=== PATIENT | female | born 1960 | race Caucasian/White ===

== ENCOUNTER 2018-02-01 21:31 | Observation (INO) | payer BC ==
--- NOTE | 2018-02-01 21:35 | PDOC ---
Rapid Medical Evaluation Time Seen by Provider: 02/01/18 21:32 Medical Evaluation: Allergies Allergy/AdvReac Type Severity Reaction Status Date / Time No Known Drug Allergies Allergy Verified 09/02/15 07:13 02/01/18 21:32 I have performed a brief in-person evaluation of this patient. The patient presents with a chief complaint of infected wound to left upper thigh. Patient reports s/p removal of cyst one week ago, noted to be red and painful at follow up at re examiner office today. Given po antibiotics and referred for iv antibiotics Pertinent physical exam findings: NAD even and unlabored unable to sit I have ordered the following: iv access The patient will proceed to the Ed for further evaluation.
--- NOTE | 2018-02-01 23:01 | PDOC ---
Attending Attestation - Resident Resident Name: Issa Portillo - ED Attending Attestation I have performed the following: I have examined & evaluated the patient, The case was reviewed & discussed with the resident, I agree w/resident's findings & plan, Exceptions are as noted - HPI HPI: 02/01/18 23:47 57yo female with recent cyst removed by her geography teacher to the posterior aspect of hte L leg. Pt with increasing pain to posterior aspect of leg. Pt without fevers. Had post op follow up with derm - removed stitch today and noticed redness to the leg. - Physicial Exam PE: 02/01/18 23:49 Gen: aaox3, uncomfortable heart: +s1s2 tachy lungs: cta b/l abd: soft, nt/nd +bs ext: L posterior thigh with [id number] indurated erythematous aspect around the open incision with purulent drainage, no lymphangitic spread, bedside ultrasound shows 2cm deep absces which is 2cm x 0.5cm in length - Medical Decision Making 02/01/18 23:01 I, Dr. Zamzam Eli, DO, attest that this document has been prepared under my direction and personally reviewed by me in its entirety. I further attest, that it accurately reflects all work, treatment, procedures and medical decision -making performed by me. 02/01/18 23:50 a/p: 57yo female with cyst removal from back of leg now with post op infectoin -sent by derm for iv abx -[id number] indurated region, opening with purulent drainage -will send labs, cultures of the wound, will start abx -will place in obs for further eval 02/02/18 00:00 resident discussed the case with Carlotta from [facility] 02/02/18 01:20 labs reviewed [facility] updated on labs iv abx running pt will be placed in obs Heart Score/ECG Review - ECG Intrepretation Comment:: 02/02/18 00:34 sinus at 90, nl axis, qtc 491, no acute st/t wave findings
[2018-02-01] MEDS ORDERED: VANCOMYCIN 1,250 MG in DEXTROSE 5%-WATER - 250 ML IVPB ONE (23:47)
--- NOTE | 2018-02-01 23:50 | PDOC ---
History of Present Illness - General Chief Complaint: Abscess Boil Stated Complaint: INFECTION Time Seen by Provider: 02/01/18 21:32 History Source: Patient Exam Limitations: No Limitations - History of Present Illness Initial Comments: 57 y/o female presenting to [facility] ER via private auto from dermatologists office complaining of worsening pain and purulent discharge from post-op wound on right posterior aspect of thigh. Pt is s/p outpatient cystectomy at Dr. Berry office last . She followed up today in the clinic. A stitch was removed and the wound was found to be likely infected. Dr. Garcia prescribed Doxycycline 100mg BID and encouraged the pt to seek emergent evaluation. Pt took one doxycycline pill tonight around 20:00. Denies fevers, chills, or diaphoresis. Panel Edge Sealer: Dr. Garcia PCP: Dr. Perez Medical Hx: - HTN Surgical Hx: - Cholecystectomy - x3 - Pins placed in R ankle Past History - Past Medical History Allergies/Adverse Reactions: Allergies Allergy/AdvReac Type Severity Reaction Status Date / Time No Known Drug Allergies Allergy Verified 02/01/18 21:35 Home Medications: Ambulatory Orders Bupropion HCl [Wellbutrin Xl] 300 mg PO DAILY 08/31/15 Cholecalciferol (Vitamin D3) [Vitamin D3] 5,000 unit PO DAILY 08/31/15 Hydrochlorothiazide [Hctz -] 25 mg PO DAILY 08/31/15 Levothyroxine [Synthroid -] 50 mcg PO DAILY 08/31/15 Naproxen [Naprosyn -] 500 mg PO BID #60 tablet 09/02/15 Oxycodone HCl/Acetaminophen [Percocet 5-325 mg Tablet] 1 tab PO Q6H PRN #40 tablet MDD 4 09/02/15 COPD: No HTN: Yes Thyroid Disease: Yes - Surgical History Cholecystectomy: Yes - Suicide/Smoking/Psychosocial Hx Smoking History: Never smoked Hx Alcohol Use: No Drug/Substance Use Hx: No Substance Use Type: None Hx Substance Use Treatment: No Review of Systems - Review of Systems Constitutional: No: Chills, Diaphoresis, Fever Respiratory: No: Shortness of Breath Cardiac (ROS): No: Chest Pain ABD/GI: No: Constipated, Diarrhea, Nausea, Vomiting, Abdominal cramping Integumentary: Yes: See HPI, Erythema, Lesions, Rash Hematologic/Lymphatic: No: Easy Bleeding, Easy Bruising *Physical Exam - Vital Signs Last Vital Signs Temp Pulse Resp BP Pulse Ox 98.4 F 104 H 18 144/99 98 02/01/18 21:32 02/01/18 21:32 02/01/18 21:32 02/01/18 21:32 02/01/18 21:32 - Physical Exam Comments: Constitutional: Well-developed, well-nourished female in no acute distress. Found standing in hospital exam room. Alert and oriented x4. Answered all questions appropriately and completely. Speech was non-labored, non-pressured. HEENT: Normocephalic. No obvious external signs of trauma. Hearing grossly normal. No nasal discharge. Neck is supple, trachea is midline. Cardiovascular: Regular rate and regular rhythm. No murmur, rubs, clicks, or gallops. Peripheral pulses: Radial pulses full. Respiratory: Breathing unlabored. Equal chest rise and fall. Clear to auscultation bilaterally. No stridor, no wheezing, no rhonchi. Gastrointestinal: abdomen is soft, non-tender, non-distended. Neuro: Alert and oriented. Moving all four extremities spontaneously. Gait normal. Observed ambulating without assistance. Skin: approx. 10cm x 10cm erythematous patch with 8mm puncture site with purulent material at opening; small amount of pus and blood noted on covered bandage. Subjectively tender throughout. No streaking away from wound. Skin grossly warm and dry. Psych: Affect: appropriate. Mood: normal. Medical Decision Making - Medical Decision Making *Reviewed nursing notes and prior visit documentation. 57 y/o female presenting with post-op abscess on right posterior aspect of thigh. S/p cystectomy. No h/o diabetes or poor wound healing. Afebrile. Vitals remarkable for tachycardia without hypotension. Physical exam concerning for cellulitis with possible abscess. Low suspicion for sepsis or bacteremia. Will obtain CBC, CMP, blood cultures, and wound cultures. Ordered IV vancomycin and percocet for symptoms. Ordered EKG and CXR for admission. POCUS revealed 2cm (width) x 1cm (depth) irregularly bordered abscess without gas. Discussed pt with admitting service who agrees to admit for IV antibiotics. *DC/Admit/Observation/Transfer Diagnosis at time of Disposition: Cellulitis and abscess of right leg - Discharge Dispostion Condition at time of disposition: Fair Decision to Admit order: Yes - Referrals Referrals: Neymar Perez MD [Primary Care Provider] - - Patient Instructions - Post Discharge Activity
--- NOTE | 2018-02-02 00:08 | HP ---
CHIEF COMPLAINT: Left Thigh/Leg Pain PCP: HISTORY OF PRESENT ILLNESS: 57 y/o woman with a past medical history of HTN, Hypothyroid. Who presents to the ED s/p cyst removed by her chart reader to the posterior aspect of the L leg. Patient reports increased pain to posterior aspect of leg. Patient states" my was cleaning the area and changing the bandaids daily and noticed that the site was increasing with redness. Patient reports the during follow up with her chart reader - removed stitch today and noticed redness to the leg and was concerned for worsening infection, and sent her in for IV ABX. Patient denies fever or chills. Patient denies dizziness SOB, CP, palpitations, AP, N/V/ D, constipation, dysuria. ER course was notable for: (1) BUN 21 (2) Cr 1.1 (3) Recent Travel: None PAST MEDICAL HISTORY: See HPI PAST SURGICAL HISTORY: See HPI Social History: Smoking: Never Alcohol: None Drugs: None Lives with spouse Family History: Father: [place] Mother: [place] Daughter: Ovarian Ca Sister: Breast ca Allergies No Known Drug Allergies Allergy (Verified 02/01/18 21:35) HOME MEDICATIONS: Home Medications Medication Instructions Recorded Bupropion HCl [Wellbutrin Xl] 300 mg PO DAILY 08/31/15 Cholecalciferol (Vitamin D3) 5,000 unit PO DAILY 08/31/15 [Vitamin D3] Hydrochlorothiazide [Hctz -] 25 mg PO DAILY 08/31/15 Levothyroxine [Synthroid -] 50 mcg PO DAILY 08/31/15 Naproxen [Naprosyn -] 500 mg PO BID #60 tablet 09/02/15 Oxycodone HCl/Acetaminophen 1 tab PO Q6H PRN #40 tablet MDD 4 09/02/15 [Percocet 5-325 mg Tablet] REVIEW OF SYSTEMS CONSTITUTIONAL: Absent: fever, chills, diaphoresis, generalized weakness, malaise, loss of appetite, weight change HEENT: Absent: rhinorrhea, nasal congestion, throat pain, throat swelling, difficulty swallowing, mouth swelling, ear pain, eye pain, visual changes CARDIOVASCULAR: Absent: chest pain, syncope, palpitations, irregular heart rate, lightheadedness , peripheral edema RESPIRATORY: Absent: cough, shortness of breath, dyspnea with exertion, orthopnea, wheezing, stridor, hemoptysis GASTROINTESTINAL: Absent: abdominal pain, abdominal distension, nausea, vomiting, diarrhea, constipation, melena, hematochezia GENITOURINARY: Absent: dysuria, frequency, urgency, hesitancy, hematuria, flank pain, genital pain MUSCULOSKELETAL: L- leg pain Absent: myalgia, arthralgia, joint swelling, back pain, neck pain SKIN: redness and swelling to L-thigh Absent: rash, itching, pallor HEMATOLOGIC/IMMUNOLOGIC: Absent: easy bleeding, easy bruising, lymphadenopathy, frequent infections ENDOCRINE: Absent: unexplained weight gain, unexplained weight loss, heat intolerance, cold intolerance NEUROLOGIC: Absent: headache, focal weakness or paresthesias, dizziness, unsteady gait, seizure, mental status changes, bladder or bowel incontinence PSYCHIATRIC: Absent: anxiety, depression, suicidal or homicidal ideation, hallucinations. PHYSICAL EXAMINATION Vital Signs - 24 hr 02/01/18 21:32 Temperature 98.4 F Pulse Rate 104 H Respiratory 18 Rate Blood Pressure 144/99 O2 Sat by Pulse 98 Oximetry (%) GENERAL: Awake, alert, and fully oriented, in no acute distress. HEAD: Normal with no signs of trauma. EYES: Pupils equal, round and reactive to light, extraocular movements intact, sclera anicteric, conjunctiva clear. No lid lag. EARS, NOSE, THROAT: Ears normal, nares patent, oropharynx clear without exudates. Moist mucous membranes. NECK: Normal range of motion, supple without lymphadenopathy, JVD, or masses. LUNGS: Breath sounds equal, clear to auscultation bilaterally. No wheezes, and no crackles. No accessory muscle use. HEART: Regular rate and rhythm, normal S1 and S2 without murmur, rub or gallop. ABDOMEN: Soft, nontender, not distended, normoactive bowel sounds, no guarding, no rebound, no masses. No hepatomegaly or splenomegaly. MUSCULOSKELETAL: Normal range of motion at all joints. No bony deformities or tenderness. No CVA tenderness. L-lateral aspect of thigh pain, induration upon palpation UPPER EXTREMITIES: 2+ pulses, warm, well-perfused. No cyanosis. No clubbing. No peripheral edema. LOWER EXTREMITIES: 2+ pulses, warm, well-perfused. No calf tenderness. No peripheral edema. NEUROLOGICAL: Cranial nerves II-XII intact. Normal speech. Antalgic gait. PSYCHIATRIC: Cooperative. Good eye contact. Appropriate mood and affect. SKIN: Warm, dry, normal turgor, no rashes noted, normal capillary refill. + erythematous, serous drainage to gauze, induration, no fluctulance to L- lateral thigh noted Laboratory Results - last 24 hr 02/02/18 02/02/18 00:38 00:38 WBC 9.1 RBC 4.70 Hgb 12.7 Hct 38.2 MCV 81.4 MCH 26.9 MCHC 33.1 RDW 14.0 Plt Count 286 MPV 7.5 Absolute Neuts (auto) 6.3 Neutrophils % 69.5 D Lymphocytes % 20.3 D Monocytes % 7.9 Eosinophils % 1.7 Basophils % 0.6 Nucleated RBC % 0 Sodium 141 Potassium 3.1 L Chloride 103 Carbon Dioxide 29 Anion Gap 9 BUN 21 H Creatinine 1.1 H Creat Clearance w eGFR 51.38 Random Glucose 98 Calcium 8.7 Total Bilirubin 0.4 AST 16 ALT 27 Alkaline Phosphatase 101 Total Protein 7.5 Albumin 3.5 ASSESSMENT/PLAN: 57 y/o woman admitted for Cellulitis, Abscess to L- leg for further evaluation of their emergent condition. Plan: will admit to med surg continue Vancomycin appreciate ID consult consider surgical consult if no improvement monitor CBC, BMP monitor vitals continue home meds FEN- Replete lytes prn,Low Na Diet DVT ppx- OOb, SCDs, Heparin SQ Code Status: Full Code Dispo: Requires Inpatient Care Problem List - Problem (1) Cellulitis and abscess of left leg Code(s): L03.116 - CELLULITIS OF LEFT LOWER LIMB; L02.416 - CUTANEOUS ABSCESS OF LEFT LOWER LIMB (2) HTN (hypertension) Code(s): I10 - ESSENTIAL (PRIMARY) HYPERTENSION Visit type - Emergency Visit Emergency Visit: Yes ED Registration Date: 02/01/18 Care time: The patient presented to the Emergency Department on the above date and was hospitalized for further evaluation of their emergent condition. - New Patient This patient is new to me today: Yes Date on this admission: 02/02/18 - Critical Care Critical Care patient: No Hospitalist Screening - Colonoscopy Questionnaire Colonoscopy Questionnaire: Colonoscopy Questionnaire - Patient: 50 - 75 years old and never had a screening colonoscopy: No History of colon or rectal polyps, or CA: No History of IBD, Crohn's disease or UC: No History of abdominal radiation therapy as a child: No - Relative: 1 with colon or rectal CA, or polyps at age 60 or younger: No Colon or rectal CA diagnosed at age 45 or younger: No Multiple relatives with colon or rectal CA: No - Outcome: Screening Result: Negative Screen
[2018-02-02] MEDS ORDERED: HEPARIN NA (PORCINE) 5,000 UNITS/ML 1ML VIAL ONE (00:47)
[2018-02-02 00:52] LABS: BASO % 0.6 % (0-2.0); EOS % 1.7 % (0-4.5); HEMATOCRIT 38.2 % (32.4-45.2); HEMOGLOBIN 12.7 GM/dL (10.7-15.3); LYMPH % 20.3 % (8-40); MCH 26.9 pg (25.7-33.7); MCHC 33.1 g/dl (32.0-36.0); MEAN CELL VOLUME 81.4 fl (80-96); MEAN PLT VOLUME 7.5 fl (7.5-11.1); MONO % 7.9 % (3.8-10.2); NEUT % 69.5 % (42.8-82.8); PLATELET COUNT 286 K/MM3 (134-434); WHITE BLOOD COUNT 9.1 K/mm3 (4.0-10.0)
[2018-02-02 01:11] LABS: ALBUMIN 3.5 g/dl (3.4-5.0); ALK PHOS 101 U/L (45-117); ANION GAP 9 MMOL/L (8-16); BILIRUBIN,TOTAL 0.4 mg/dL (0.2-1.0); BLOOD UREA NITROGEN 21 mg/dL (7-18); CALCIUM 8.7 mg/dL (8.5-10.1); CHLORIDE 103 mmol/L (98-107); CO2 29 mmol/L (21-32); CREATININE 1.1 mg/dL (0.55-1.02); GLUCOSE,RANDOM 98 mg/dL (74-106); POTASSIUM 3.1 mmol/L (3.5-5.1); SGOT/AST 16 U/L (15-37); SGPT/ALT 27 U/L (12-78); SODIUM 141 mmol/L (136-145); TOT PROT 7.5 g/dl (6.4-8.2)
[2018-02-02] MEDS ORDERED: POTASSIUM CHLORIDE TABS 20 MEQ TABLET.ER (FP) PO ONE ×2 (01:55→03:07)
[2018-02-02] MEDS ORDERED: LEVOTHYROXINE NA 25 MCG TABLET (FP) ONE (08:24)
[2018-02-02] MEDS: LEVOTHYROXINE NA 50 MCG TABLET (FP) PO SCH (08:24)
--- NOTE | 2018-02-02 09:07 | EKG ---
Test Reason : Blood Pressure : / mmHG Vent. Rate : 090 BPM Atrial Rate : 090 BPM P-R Int : 182 ms QRS Dur : 098 ms QT Int : 402 ms P-R-T Axes : 046 -16 014 degrees QTc Int : 491 ms NORMAL SINUS RHYTHM PROLONGED QT ABNORMAL ECG WHEN COMPARED WITH ECG OF 22-DEC-2008 00:18, NO SIGNIFICANT CHANGE WAS FOUND Confirmed by ABEL WHATLEY MD ([id number]) on 02/02/2018 9:07:12 AM Referred By: Confirmed By:ABEL WHATLEY MD
--- NOTE | 2018-02-02 09:21 | PN ---
Progress Note (short form) - Note Progress Note: ID consult dictated imp/reccd 57 year old female admitted with left thigh abscess/soft tiuus infection began 10 days ago as a pimple she saw Dermatologis Dr Garcia about one week ago, abscess was drained and a stitch was placed thigh remained painful she returned yesterday to have suture removed still with purulent drainage, advised hospital admission no fevers in ED found to have 2 cm abscess by US started on iv vancomycin abscess with cellulitis continue vancomycin surgery consult analgesia Problem List - Problems (1) Cellulitis and abscess of left leg Code(s): L03.116 - CELLULITIS OF LEFT LOWER LIMB; L02.416 - CUTANEOUS ABSCESS OF LEFT LOWER LIMB
[2018-02-02] MEDS ORDERED: HYDROCHLOROTHIAZIDE 25 MG TABLET (FP) PO SCH (10:00)
--- NOTE | 2018-02-02 10:06 | CONS ---
DATE OF CONSULTATION: DATE OF DICTATION: 02/02/2018 REQUESTING PHYSICIAN: Neymar Perez MD This is a 57-year-old female who 10 days ago developed a pimple on the posterior aspect of her left thigh. It became very painful. She saw the finisher plate 2 days later, Dr. Garcia, who drained it and put a stitch in. The area continued to remain painful. She treated it with some topical ointment and warm compresses. She returned yesterday to have the suture removed. There was still some purulent discharge, and she was asked to come to the hospital. She was started on doxycycline 100 mg b.i.d. She had apparently a cyst removed from that area last week. She had an ultrasound done as well in the emergency room that showed a 2-cm abscess. She denies any fevers or chills, nausea, vomiting, diarrhea. She states the area is quite painful. PAST MEDICAL HISTORY: Notable for hypertension and thyroid disease. PAST SURGICAL HISTORY: Notable for cholecystectomy. She has had 3 C-sections, and she has pins in her right ankle which were placed about 20 years ago. FAMILY HISTORY: Notable for valvular disease in her dad. SOCIAL HISTORY: She is . She works as a exceptional student education aide. She has 3 children. There is no history of cigarette or substance use. MEDICATIONS: Her medications at home include Synthroid, hydrochlorothiazide, vitamin D, and potassium. REVIEW OF SYSTEMS: She denies diarrhea, nausea, vomiting. She states the pain in her leg has not changed. PHYSICAL EXAMINATION: Vital Signs: She is afebrile. Temperature is 97.8. Pulse is 77, blood pressure 116/60, respiratory rate 16. She is saturating 98% on room air. HEENT: She is normocephalic. Her eyes are anicteric. Neck: Supple. Lungs: Clear to auscultation. Heart: Regular rate and rhythm. Abdomen: Soft, nontender. Skin: She has a 10 x 10 area of erythema, posterior aspect of her left thigh. There is an area of induration about 2 cm in the middle. She has an open wound in the middle that is currently draining bloody discharge. LABORATORY: Notable for a white count of 9.1, hemoglobin 12.7, platelets are 286. BUN and creatinine are 21 and 1.1. LFTs are normal. Blood cultures and cultures from the thigh are pending. Ultrasound finding as previously stated in the emergency room, notable for a 2-cm deep abscess, 2 x 0.5 cm. Chest x-ray shows no infiltrate. SUMMARY: This is a 57-year-old woman with a soft tissue infection of her left thigh. She has abscess with surrounding cellulitis. Would continue vancomycin. I tried to give the finisher plate's office a call to obtain culture results, but unfortunately the office is closed for the weekend. Would continue vancomycin as ordered and would recommend a surgery consult. Case was discussed with Dr. Perez. MARCIAL THOMASON M.D. DANIELE/[id number]
[2018-02-02] MEDS ORDERED: HYDROCHLOROTHIAZIDE 25 MG TABLET (FP) ONE (10:13)
[2018-02-02] MEDS: HEPARIN NA (PORCINE) 5,000 UNITS/ML 1ML VIAL SQ SCH ×2 (10:18→22:27)
--- NOTE | 2018-02-02 11:16 | PN ---
Progress Note, Physician Chief Complaint: patient awake and alert - Current Medication List Current Medications: Active Medications Heparin Sodium (Porcine) (Heparin -) 5,000 unit SQ BID [facility] Last Admin: 02/02/18 10:18 Dose: 5,000 unit Hydrochlorothiazide (Hctz -) 25 mg PO DAILY [facility] Last Admin: 02/02/18 10:18 Dose: 25 mg Vancomycin HCl (Vancomycin 1 Gm Premix -) 1 gm in 200 mls @ 133.333 mls/hr IVPB Q12H [facility]; Protocol Levothyroxine Sodium (Synthroid -) 50 mcg PO DAILY@0700 [facility] Last Admin: 02/02/18 08:24 Dose: 50 mcg - Objective Vital Signs: Vital Signs Temperature 97.6 F 02/02/18 10:56 Pulse Rate 74 02/02/18 10:56 Respiratory Rate 16 02/02/18 07:51 Blood Pressure 118/85 02/02/18 10:56 O2 Sat by Pulse Oximetry (%) 97 02/02/18 10:56 Constitutional: Yes: Calm Cardiovascular: Yes: Regular Rate and Rhythm, S1, S2 Respiratory: Yes: CTA Bilaterally Gastrointestinal: Yes: Normal Bowel Sounds, Soft Extremities: Yes: Erythema (left thigh posterior surface erthematous and tender to touch with lesion in the middle dried blood in the middle on the bandage) Labs: CBC, BMP 02/02/18 00:38 02/02/18 00:38 Problem List - Problems (1) Cellulitis and abscess of left leg Assessment/Plan: iv vancomycin surgical consult Code(s): L03.116 - CELLULITIS OF LEFT LOWER LIMB; L02.416 - CUTANEOUS ABSCESS OF LEFT LOWER LIMB (2) HTN (hypertension) Assessment/Plan: hctz will stop given electrolyte abnormaltities norvasc 10mg Code(s): I10 - ESSENTIAL (PRIMARY) HYPERTENSION (3) Hypothyroid Assessment/Plan: tsh free t4 synthroid Code(s): E03.9 - HYPOTHYROIDISM, UNSPECIFIED
[2018-02-02] MEDS ORDERED: VANCOMYCIN 1,250 MG in DEXTROSE 5%-WATER - 250 ML IVPB SCH (13:00)
[2018-02-02] MEDS: VANCOMYCIN 1 GM PREMIX - 1 GM/200 ML BAG IVPB SCH (13:30)
[2018-02-02] MEDS ORDERED: VANCOMYCIN 1 GRAM (PRE-DOCKED) 1,000 MG/250 ML BAG IVPB ONE (13:38)
[2018-02-02] MEDS: ONDANSETRON 4 MG/2 ML VIAL IVPUSH PRN (15:13)
[2018-02-02] MEDS ORDERED: clonazePAM 0.5 MG TABLET ONE (16:27)
[2018-02-02 17:45] VITALS: BMI 35.9
[2018-02-02] MEDS: oxyCODONE HCL 5 MG TABLET PO PRN (22:44)
[2018-02-03] MEDS: VANCOMYCIN 1 GM PREMIX - 1 GM/200 ML BAG IVPB SCH ×2 (00:44→15:24)
[2018-02-03] MEDS: LEVOTHYROXINE NA 50 MCG TABLET (FP) PO SCH (06:29)
[2018-02-03] MEDS: oxyCODONE HCL 5 MG TABLET PO PRN (08:25)
[2018-02-03 08:29] LABS: BASO % 0.5 % (0-2.0); EOS % 3.3 % (0-4.5); HEMATOCRIT 37.7 % (32.4-45.2); HEMOGLOBIN 12.4 GM/dL (10.7-15.3); LYMPH % 25.3 % (8-40); MCH 26.9 pg (25.7-33.7); MEAN CELL VOLUME 81.6 fl (80-96); MEAN PLT VOLUME 7.2 fl (7.5-11.1); MONO % 10.4 % (3.8-10.2); NEUT % 60.5 % (42.8-82.8); PLATELET COUNT 246 K/MM3 (134-434); RBC 4.62 M/mm3 (3.60-5.2); WHITE BLOOD COUNT 5.7 K/mm3 (4.0-10.0)
[2018-02-03 08:43] LABS: ALBUMIN 3.2 g/dl (3.4-5.0); ANION GAP 12 MMOL/L (8-16); BLOOD UREA NITROGEN 11 mg/dL (7-18); CALCIUM 8.5 mg/dL (8.5-10.1); CHLORIDE 102 mmol/L (98-107); CO2 28 mmol/L (21-32); GLUCOSE,RANDOM 94 mg/dL (74-106); POTASSIUM 3.2 mmol/L (3.5-5.1); SODIUM 142 mmol/L (136-145)
[2018-02-03 08:57] LABS: ALK PHOS 93 U/L (45-117); BILIRUBIN,TOTAL 0.4 mg/dL (0.2-1.0); CREATININE 0.9 mg/dL (0.55-1.02); SGOT/AST 16 U/L (15-37); SGPT/ALT 25 U/L (12-78); TOT PROT 6.9 g/dl (6.4-8.2)
[2018-02-03] MEDS ORDERED: LIDOCAINE 1% P/F 10 MG/ML VIAL IJ ONE (09:15)
--- NOTE | 2018-02-03 09:43 | CONS ---
DATE OF CONSULTATION: 02/03/2018 REFERRING PHYSICIAN: Neymar Perez MD REASON FOR CONSULTATION: Left thigh abscess. BRIEF HISTORY: This is a 57-year-old female whose history is that approximately 2 weeks ago she started with a slight dime-sized area of infection in the lateral aspect of her left thigh. She presented to the film processing shift supervisor at that time and was told that it was a cyst, and the film processing shift supervisor nicked it. By opening this she then said that this would heal. Over the next week or so, the incised area became worse, and she had progressive pain. She was evaluated by Dr. Perez and sent for evaluation and admission in the hospital for IV antibiotics. The patient denies fevers, chills, or sweats at this time. PAST MEDICAL HISTORY: Significant for hypertension. ALLERGIES: None. MEDICATIONS: Hydrochlorothiazide. SOCIAL HISTORY: She does not smoke. She drinks socially. PHYSICAL EXAMINATION: On the lateral aspect of the left thigh is an area of induration approximately 4 cm x 4 cm. Within the central aspect of the induration is an open wound consistent with a previous dermatology incision and drainage. There is an overlying blood clot. The area is erythematous, tender, minimally fluctuant. IMPRESSION/PLAN: Incompletely drained left thigh abscess. This was completely drained at the bedside under local anesthesia. Wound care instructions given. Patient identified. Placed in a right lateral decubitus position. The area was prepped with alcohol then 1% lidocaine without epinephrine was used for local anesthesia. Approximately 3 mL used. The incision and drainage site was lengthened by a mm on each side and deepened to approximately 2 cm. In doing so, there was pus that was obtained, approximately 15 mL of pus. The wound was then subsequently irrigated, packed with a piece of gauze. The wound was subsequently dressed. The patient tolerated the procedure well. No complications. Thank you for allowing me to participate in the care of your patient. I will see her in the office in the postoperative period once she is discharged from IV antibiotics. TINA WHITT M.D. [id number] cc: Neymar Perez MD
[2018-02-03] MEDS: HEPARIN NA (PORCINE) 5,000 UNITS/ML 1ML VIAL SQ SCH ×2 (10:04→22:58)
[2018-02-03] MEDS: amLODIPine BESYLATE 10 MG TABLET (FP) PO SCH (10:04)
--- NOTE | 2018-02-03 11:04 | PN ---
Progress Note (short form) - Note Progress Note: s/p bedside drainage of abscess this am no fevers Vital Signs Period Temp Pulse Resp BP Sys/Suarez Pulse Ox Last 24 Hr 97.9 F-98.3 F 70-84 16-20 102-147/67-85 97-98 cor-rrr lungs clear abd soft,nt ext dressing intact left lateral thigh CBC, BMP 02/03/18 06:20 02/03/18 06:20 Microbiology 02/02/18 00:38 Blood - Peripheral Venous Blood Culture - Preliminary NO GROWTH OBTAINED AFTER 24 HOURS, INCUBATION TO CONTINUE FOR 4 DAYS. 02/02/18 00:38 Blood - Peripheral Venous Blood Culture - Preliminary NO GROWTH OBTAINED AFTER 24 HOURS, INCUBATION TO CONTINUE FOR 4 DAYS. 02/01/18 23:45 Thigh - Right Gram Stain - Final a/p abscess with cellulitis continue vancomycin-check vanco trough today s/ drainage Problem List - Problems (1) Cellulitis and abscess of left leg Code(s): L03.116 - CELLULITIS OF LEFT LOWER LIMB; L02.416 - CUTANEOUS ABSCESS OF LEFT LOWER LIMB
[2018-02-03] MEDS: ONDANSETRON 4 MG/2 ML VIAL IVPUSH PRN (11:55)
--- NOTE | 2018-02-03 12:22 | PN ---
Progress Note, Physician - Current Medication List Current Medications: Active Medications Amlodipine Besylate (Norvasc -) 10 mg PO DAILY [facility] Last Admin: 02/03/18 10:04 Dose: 10 mg Heparin Sodium (Porcine) (Heparin -) 5,000 unit SQ BID [facility] Last Admin: 02/03/18 10:04 Dose: 5,000 unit Vancomycin HCl (Vancomycin 1 Gm Premix -) 1 gm in 200 mls @ 133.333 mls/hr IVPB Q12H [facility]; Protocol Last Admin: 02/03/18 00:44 Dose: 133.333 mls/hr Levothyroxine Sodium (Synthroid -) 50 mcg PO DAILY@0700 [facility] Last Admin: 02/03/18 06:29 Dose: 50 mcg Ondansetron HCl (Zofran Injection) 4 mg IVPUSH Q6H PRN PRN Reason: NAUSEA AND/OR VOMITING Last Admin: 02/03/18 11:55 Dose: 4 mg Oxycodone HCl (Roxicodone -) 5 mg PO Q6H PRN PRN Reason: PAIN LEVEL 6-10 Last Admin: 02/03/18 08:25 Dose: 5 mg - Objective Vital Signs: Vital Signs Temperature 98.3 F 02/03/18 06:00 Pulse Rate 70 02/03/18 06:00 Respiratory Rate 20 02/03/18 06:00 Blood Pressure 102/67 02/03/18 06:00 O2 Sat by Pulse Oximetry (%) 98 02/02/18 21:00 Cardiovascular: Yes: Regular Rate and Rhythm Respiratory: Yes: Regular, CTA Bilaterally Gastrointestinal: Yes: Normal Bowel Sounds, Soft Wound/Incision: Yes: Dressing Removed, Draining, Bleeding Labs: CBC, BMP 02/03/18 06:20 02/03/18 06:20 Problem List - Problems (1) Cellulitis and abscess of left leg Assessment/Plan: iv vancomycin surgical consult noted--S/p I&D Code(s): L03.116 - CELLULITIS OF LEFT LOWER LIMB; L02.416 - CUTANEOUS ABSCESS OF LEFT LOWER LIMB (2) HTN (hypertension) Assessment/Plan: off hctz will given electrolyte abnormaltities norvasc 10mg Code(s): I10 - ESSENTIAL (PRIMARY) HYPERTENSION (3) Hypothyroid Assessment/Plan: Laboratory Tests 02/03/18 06:20 TSH 2.97 Code(s): E03.9 - HYPOTHYROIDISM, UNSPECIFIED
[2018-02-04] MEDS ORDERED: PT OWN MED DRAWER 7, Y5N ONE ×2 (01:31→12:53)
[2018-02-04] MEDS: VANCOMYCIN 1 GM PREMIX - 1 GM/200 ML BAG IVPB SCH ×2 (01:35→12:55)
[2018-02-04] MEDS: LEVOTHYROXINE NA 50 MCG TABLET (FP) PO SCH (06:37)
[2018-02-04] MEDS: amLODIPine BESYLATE 10 MG TABLET (FP) PO SCH (10:33)
[2018-02-04] MEDS: HEPARIN NA (PORCINE) 5,000 UNITS/ML 1ML VIAL SQ SCH ×2 (10:33→21:19)
--- NOTE | 2018-02-04 10:53 | PN ---
Progress Note (short form) - Note Progress Note: s/p bedside drainage of abscess yesterday no fevers Vital Signs Period Temp Pulse Resp BP Sys/Suarez Pulse Ox Last 24 Hr 98.0 F-98.4 F 72-83 20-21 116-124/51-76 98 cor-rrr lungs clear abd soft,nt still some induration left thigh, no drainage +erythema (less) CBC, BMP 02/03/18 06:20 02/03/18 06:20 Microbiology 02/01/18 23:45 Thigh - Right Gram Stain - Final 02/01/18 23:45 Thigh - Right Wound Culture - Preliminary S Aureus 02/02/18 00:38 Blood - Peripheral Venous Blood Culture - Preliminary NO GROWTH OBTAINED AFTER 48 HOURS, INCUBATION TO CONTINUE FOR 3 DAYS. 02/02/18 00:38 Blood - Peripheral Venous Blood Culture - Preliminary NO GROWTH OBTAINED AFTER 48 HOURS, INCUBATION TO CONTINUE FOR 3 DAYS. vanco trough 12 a/p abscess with cellulitis-MRSA- d/w patient at length contact isolation to continue continue vancomycin- f/u culture results if sensitive to bactrim can switch to po bactrim for 7 days in am Problem List - Problems (1) Cellulitis and abscess of left leg Code(s): L03.116 - CELLULITIS OF LEFT LOWER LIMB; L02.416 - CUTANEOUS ABSCESS OF LEFT LOWER LIMB
[2018-02-04] MEDS ORDERED: POTASSIUM CHLORIDE TABS 20 MEQ TABLET.ER (FP) PO ONE (14:47)
--- NOTE | 2018-02-04 14:48 | PN ---
Progress Note, Physician - Current Medication List Current Medications: Active Medications Amlodipine Besylate (Norvasc -) 10 mg PO DAILY [facility] Last Admin: 02/04/18 10:33 Dose: 10 mg Heparin Sodium (Porcine) (Heparin -) 5,000 unit SQ BID [facility] Last Admin: 02/04/18 10:33 Dose: 5,000 unit Vancomycin HCl (Vancomycin 1 Gm Premix -) 1 gm in 200 mls @ 133.333 mls/hr IVPB Q12H [facility]; Protocol Last Admin: 02/04/18 12:55 Dose: 133.333 mls/hr Levothyroxine Sodium (Synthroid -) 50 mcg PO DAILY@0700 [facility] Last Admin: 02/04/18 06:37 Dose: 50 mcg Ondansetron HCl (Zofran Injection) 4 mg IVPUSH Q6H PRN PRN Reason: NAUSEA AND/OR VOMITING Last Admin: 02/03/18 11:55 Dose: 4 mg Oxycodone HCl (Roxicodone -) 5 mg PO Q6H PRN PRN Reason: PAIN LEVEL 6-10 Last Admin: 02/03/18 08:25 Dose: 5 mg - Objective Vital Signs: Vital Signs Temperature 98.4 F 02/04/18 08:00 Pulse Rate 100 H 02/04/18 08:00 Respiratory Rate 20 02/04/18 08:00 Blood Pressure 110/93 02/04/18 08:00 O2 Sat by Pulse Oximetry (%) 98 02/04/18 08:00 Cardiovascular: Yes: Regular Rate and Rhythm Respiratory: Yes: Regular, CTA Bilaterally Wound/Incision: Yes: Dressing Removed, Excoriated Labs: CBC, BMP 02/03/18 06:20 02/03/18 06:20 Problem List - Problems (1) Cellulitis and abscess of left leg Assessment/Plan: iv vancomycin surgical consult noted--S/p I&D Code(s): L03.116 - CELLULITIS OF LEFT LOWER LIMB; L02.416 - CUTANEOUS ABSCESS OF LEFT LOWER LIMB (2) HTN (hypertension) Assessment/Plan: off hctz will given electrolyte abnormaltities norvasc 10mg Code(s): I10 - ESSENTIAL (PRIMARY) HYPERTENSION (3) Hypothyroid Assessment/Plan: Laboratory Tests 02/03/18 06:20 TSH 2.97 Code(s): E03.9 - HYPOTHYROIDISM, UNSPECIFIED
[2018-02-05] MEDS: VANCOMYCIN 1 GM PREMIX - 1 GM/200 ML BAG IVPB SCH ×2 (00:16→13:22)
[2018-02-05] MEDS: LEVOTHYROXINE NA 50 MCG TABLET (FP) PO SCH (06:08)
[2018-02-05 09:18] LABS: BASO % 0.9 % (0-2.0); EOS % 3.6 % (0-4.5); HEMATOCRIT 39.5 % (32.4-45.2); HEMOGLOBIN 12.7 GM/dL (10.7-15.3); MCH 26.5 pg (25.7-33.7); MCHC 32.2 g/dl (32.0-36.0); MEAN CELL VOLUME 82.2 fl (80-96); MEAN PLT VOLUME 7.3 fl (7.5-11.1); MONO % 9.2 % (3.8-10.2); NEUT % 56.3 % (42.8-82.8); PLATELET COUNT 297 K/MM3 (134-434); RBC 4.81 M/mm3 (3.60-5.2); RDW 14.1 % (11.6-15.6)
[2018-02-05] MEDS: HEPARIN NA (PORCINE) 5,000 UNITS/ML 1ML VIAL SQ SCH (09:18)
[2018-02-05] MEDS: amLODIPine BESYLATE 10 MG TABLET (FP) PO SCH (09:18)
[2018-02-05 09:21] LABS: ALBUMIN 3.1 g/dl (3.4-5.0); ALK PHOS 92 U/L (45-117); ANION GAP 6 MMOL/L (8-16); BILIRUBIN,TOTAL 0.2 mg/dL (0.2-1.0); BLOOD UREA NITROGEN 14 mg/dL (7-18); CALCIUM 8.8 mg/dL (8.5-10.1); CHLORIDE 104 mmol/L (98-107); CO2 33 mmol/L (21-32); GLUCOSE,RANDOM 100 mg/dL (74-106); POTASSIUM 3.9 mmol/L (3.5-5.1); SGOT/AST 22 U/L (15-37); SGPT/ALT 31 U/L (12-78); SODIUM 143 mmol/L (136-145)
--- NOTE | 2018-02-05 09:54 | PN ---
Progress Note (short form) - Note Progress Note: s/p bedside drainage of abscess Monday no fevers Vital Signs Period Temp Pulse Resp BP Sys/Suarez Pulse Ox Last 24 Hr 98 F-98.3 F 72-100 20-21 97-145/62-72 98 cor-rrr lungs clear abd soft,nt ext minimal erythema of the left thigh wound CBC, BMP 02/05/18 07:58 02/05/18 07:58 Microbiology 02/02/18 00:38 Blood - Peripheral Venous Blood Culture - Preliminary NO GROWTH OBTAINED AFTER 72 HOURS, INCUBATION TO CONTINUE FOR 2 DAYS. 02/02/18 00:38 Blood - Peripheral Venous Blood Culture - Preliminary NO GROWTH OBTAINED AFTER 72 HOURS, INCUBATION TO CONTINUE FOR 2 DAYS. 02/01/18 23:45 Thigh - Right Gram Stain - Final 02/01/18 23:45 Thigh - Right Wound Culture - Final S Aureus vanco trough 12 a/p abscess with cellulitis-MRSA- d/w patient at length contact isolation to continue switch to po bactrim 1 ds po bid for 7 days wound care per surgery Problem List - Problems (1) Cellulitis and abscess of left leg Code(s): L03.116 - CELLULITIS OF LEFT LOWER LIMB; L02.416 - CUTANEOUS ABSCESS OF LEFT LOWER LIMB
[2018-02-05 11:18] VITALS: BP 103/75; PULSE 103; TEMP 97.4
--- NOTE | 2018-02-05 12:28 | PN ---
Progress Note, Physician Chief Complaint: left thigh cellulitis History of Present Illness: NAD Afebrile On Vanco BID No leukocytocis - Current Medication List Current Medications: Active Medications Amlodipine Besylate (Norvasc -) 10 mg PO DAILY [facility] Last Admin: 02/05/18 09:18 Dose: 10 mg Heparin Sodium (Porcine) (Heparin -) 5,000 unit SQ BID [facility] Last Admin: 02/05/18 09:18 Dose: 5,000 unit Vancomycin HCl (Vancomycin 1 Gm Premix -) 1 gm in 200 mls @ 133.333 mls/hr IVPB Q12H [facility]; Protocol Last Admin: 02/05/18 00:16 Dose: 133.333 mls/hr Levothyroxine Sodium (Synthroid -) 50 mcg PO DAILY@0700 [facility] Last Admin: 02/05/18 06:08 Dose: 50 mcg Ondansetron HCl (Zofran Injection) 4 mg IVPUSH Q6H PRN PRN Reason: NAUSEA AND/OR VOMITING Last Admin: 02/03/18 11:55 Dose: 4 mg - Objective Vital Signs: Vital Signs Temperature 97.4 F L 02/05/18 09:00 Pulse Rate 103 H 02/05/18 09:00 Respiratory Rate 20 02/05/18 09:00 Blood Pressure 103/75 02/05/18 09:00 O2 Sat by Pulse Oximetry (%) 98 02/04/18 20:03 Constitutional: Yes: Well Nourished, No Distress, Calm Cardiovascular: Yes: Regular Rate and Rhythm Respiratory: Yes: Regular Gastrointestinal: Yes: Normal Bowel Sounds, Soft Musculoskeletal: Yes: WNL Extremities: Yes: Erythema (Left thigh) Wound/Incision: Yes: Dressing Dry and Intact Neurological: Yes: Alert, Oriented Psychiatric: Yes: Alert, Oriented Labs: CBC, BMP 02/05/18 07:58 02/05/18 07:58 Problem List - Problems (1) Cellulitis and abscess of left leg Assessment/Plan: -received IV vanco -Seen by ID -Wound growing MRSA -d/c on Bactrim DS BID x 7 days and f/u with surgery Code(s): L03.116 - CELLULITIS OF LEFT LOWER LIMB; L02.416 - CUTANEOUS ABSCESS OF LEFT LOWER LIMB Assessment/Plan see problem list
--- NOTE | 2018-02-05 12:33 | DS ---
Physical Examination Vital Signs: Vital Signs Temperature 97.4 F L 02/05/18 09:00 Pulse Rate 103 H 02/05/18 09:00 Respiratory Rate 20 02/05/18 09:00 Blood Pressure 103/75 02/05/18 09:00 O2 Sat by Pulse Oximetry (%) 98 02/04/18 20:03 Findings/Remarks: 57 y/o woman with a past medical history of HTN, Hypothyroid. Who presents to the ED s/p cyst removed by her theatrical variety agent to the posterior aspect of the L leg. Patient reports increased pain to posterior aspect of leg. Patient states" my was cleaning the area and changing the bandaids daily and noticed that the site was increasing with redness. Patient reports the during follow up with her theatrical variety agent - removed stitch today and noticed redness to the leg and was concerned for worsening infection, and sent her in for IV ABX. Patient denies fever or chills. Patient denies dizziness SOB, CP, palpitations, AP, N/V/ D, constipation, dysuria. Constitutional: Yes: Well Nourished, No Distress, Calm Cardiovascular: Yes: Regular Rate and Rhythm Gastrointestinal: Yes: Normal Bowel Sounds, Soft Musculoskeletal: Yes: WNL Extremities: Yes: WNL, Erythema Edema: No Peripheral Pulses WNL: Yes Neurological: Yes: Alert, Oriented Psychiatric: Yes: Alert, Oriented Labs: CBC, BMP 02/05/18 07:58 02/05/18 07:58 Discharge Summary Reason For Visit: CELLULITIS AND ABSCESS OF RIGHT LOWER EXTREMITY Current Active Problems Cellulitis and abscess of left leg (Acute) Cellulitis and abscess of right leg (Acute) HTN (hypertension) (Acute) Hypothyroid (Acute) Condition: Stable - Instructions Referrals: Neymar Perez MD [Primary Care Provider] - Rangel Edmondson MD [Staff Physician] - Disposition: HOME - Home Medications Comprehensive Discharge Medication List: Ambulatory Orders Cholecalciferol (Vitamin D3) [Vitamin D3] 5,000 unit PO DAILY 08/31/15 Hydrochlorothiazide [Hctz -] 25 mg PO DAILY 08/31/15 Levothyroxine [Synthroid -] 50 mcg PO DAILY 08/31/15 Potassium PO DAILY 02/02/18
[2018-02-05] MEDS ORDERED: PT OWN MED DRAWER 7, Y5N ONE (13:14)
== END 2018-02-05 18:39 | disposition home or self-care (01) ==
LOC: JER 21:31 → JERBED 23:50 → OBSVTOIN 02-02 08:00 → INTOOBSV 02-02 08:00 → J6S 02-02 17:08
PROVIDERS: ADMIT Internal Medicine; ATTEND Family Medicine
PROC: 3E03329 Introduction of Other Anti-infective into Peripheral Vein, Percutaneous Approach (ICD-10-PCS; 2018-02-01)
PROC: 3E033GC Introduction of Other Therapeutic Substance into Peripheral Vein, Percutaneous Approach (ICD-10-PCS; 2018-02-01)
PROC: 3E013GC Introduction of Other Therapeutic Substance into Subcutaneous Tissue, Percutaneous Approach (ICD-10-PCS; 2018-02-01)
PROC: 0H9JXZZ Drainage of Left Upper Leg Skin, External Approach (ICD-10-PCS; principal; 2018-02-03)
DX: L02.416 Cutaneous abscess of left lower limb (principal); L03.116 Cellulitis of left lower limb; I10 Essential (primary) hypertension; E03.9 Hypothyroidism, unspecified
CPT/HCPCS: 36415; 71045-TC-FY; 80053; 84443; 85025; 87040; 87070; 87186; 87205; 93005; 93010; 99284-25; G0378; G0480; J1644

== ENCOUNTER 2018-08-20 09:11 | Day surgery (SDC) | payer BC ==
[2018-08-17 10:44] VITALS: BMI 37.3
[~2018-08-20 09:11] MED LIST: ONDANSETRON 4 MG/2 ML VIAL IVPUSH PRN; oxyCODONE HCL 5 MG TABLET PO PRN
[2018-08-20] MEDS ORDERED: MIDAZOLAM HCL 2 MG/2 ML SINGLE DOSE VIAL ONE (11:06)
[2018-08-20] MEDS ORDERED: KETOROLAC TROMETHAMINE 30 MG/1 ML VIAL ONE (11:25)
[2018-08-20] MEDS ORDERED: ONDANSETRON 4 MG/2 ML VIAL ONE (12:06)
[2018-08-20] MEDS ORDERED: ONDANSETRON 4 MG/2 ML VIAL IVPUSH ONE (12:10)
--- NOTE | 2018-08-20 13:01 | OP ---
Operative Note - Note: Operative Date: 08/20/18 Pre-Operative Diagnosis: Left renal stone Operation: LEFT RENAL STONE Implants: 5 MM MID POLE lEFT RENAL STONE Post-Operative Diagnosis: Same as Pre-op Surgeon: Bossman Suero Anesthesia: Fractional Estimated Blood Loss (mls): 0 Operative Report Dictated: Yes
[2018-08-20 14:01] VITALS: BP 142/74; PULSE 86; TEMP 97.4
--- NOTE | 2018-09-26 09:45 | OP ---
DATE OF OPERATION: 08/20/2018 PREOPERATIVE DIAGNOSIS: Left renal stone. POSTOPERATIVE DIAGNOSIS: Left renal stone. PROCEDURE: Left extracorporeal shock wave lithotripsy. ATTENDING: Javier Chaudhry MD ANESTHESIA: Fractional. OPERATION: The patient was brought in the operating room, placed in the supine position on the operating room table. Ultrasonography and fluoroscopy were performed. A 5-mm left mid pole stone was identified. Anesthesia and preoperative antibiotics were then administered. Shock wave lithotripsy was then started. Excellent fragmentation of the stone was noted under real time ultrasonography and fluoroscopy. No complications were noted. Disposition of the patient was to the recovery room. JAVIER CHAUDHRY M.D. /[id number]
== END 2018-08-20 14:00 | disposition home or self-care (01) ==
LOC: JASU-SURG 09:11
PROVIDERS: ATTEND Urology
PROC: 0TF4XZZ Fragmentation in Left Kidney Pelvis, External Approach (ICD-10-PCS; principal; 2018-08-20 11:00)
DX: N20.0 Calculus of kidney (principal)

== ENCOUNTER 2019-06-11 19:28 | Observation (INO) | payer BC ==
--- NOTE | 2019-06-11 20:09 | PDOC ---
Attending Attestation - Resident Resident Name: Johnny Cobian - ED Attending Attestation I have performed the following: I have examined & evaluated the patient, The case was reviewed & discussed with the resident, I agree w/resident's findings & plan - HPI HPI: 06/11/19 23:59 see resident hpi - Physicial Exam PE: 06/12/19 00:00 agree with resident exam - Medical Decision Making 06/12/19 00:01 59-year-old female status post witnessed syncopal episode No acute ST segment changes on EKG We will hold for observation
[2019-06-11] MEDS ORDERED: SODIUM CHLORIDE 0.9% 500 ML INFUS.BAG IV ONE (20:17)
--- NOTE | 2019-06-11 20:26 | PDOC ---
History of Present Illness - General Chief Complaint: Syncope/Near Syncope Stated Complaint: SYNCOPE Time Seen by Provider: 06/11/19 20:09 - History of Present Illness Initial Comments: The pt is a 59F w/ a history of HTN, hypothyroidism, and depression who presents for evaluation s/p syncopal episode at 1845 today. She states she was sitting on a bar stool when she felt sweaty, hot, and nauseated before her witnessed her pass out. He caught her and denies her hitting her head. He states that she was unconscious for approximately 3-5 minutes. She denies chest pain before/after the event. She denies recent illness, fevers, pain, chest pain, trouble breathing, current nausea, recent dysuria, hematuria, or changes in sensation. 06/11/19 20:19 Past History - Past Medical History Allergies/Adverse Reactions: Allergies Allergy/AdvReac Type Severity Reaction Status Date / Time No Known Drug Allergies Allergy Verified 08/17/18 10:28 Home Medications: Ambulatory Orders Hydrochlorothiazide [Hctz -] 25 mg PO DAILY 08/31/15 Levothyroxine [Synthroid -] 50 mcg PO DAILY 08/31/15 Amlodipine Besylate [Norvasc -] 10 mg PO DAILY #30 tablet 02/05/18 Wellbutrin - 600 mg PO DAILY 08/17/18 Anemia: No Asthma: No Cancer: No Cardiac Disorders: No CVA: No COPD: No CHF: No Dementia: No Diabetes: No GI Disorders: No Disorders: No HTN: Yes Hypercholesterolemia: No Kidney Stones: No Liver Disease: No Seizures: No Thyroid Disease: Yes Lung CA: No - Surgical History Abdominal Surgery: No Appendectomy: No Cardiac Surgery: No Cholecystectomy: Yes GI Surgery: No Lung Surgery: No Neurologic Surgery: No Orthopedic Surgery: Yes (r ankle pins n plates) - Immunization History Immunization Up to Date: No - Psycho Social/Smoking Cessation Hx Smoking History: Never smoked Have you smoked in the past 12 months: No Information on smoking cessation initiated: No Hx Alcohol Use: No Drug/Substance Use Hx: No Substance Use Type: None Hx Substance Use Treatment: No Review of Systems - Review of Systems Able to Perform ROS?: Yes Comments:: GENERAL/CONSTITUTIONAL: No fever or chills. No weakness HEAD, EYES, EARS, NOSE AND THROAT: No change in vision. No change in hearing. No sore throat CARDIOVASCULAR: No chest pain or shortness of breath RESPIRATORY: Denies cough, hemoptysis GASTROINTESTINAL: No vomiting, diarrhea or constipation GENITOURINARY: No dysuria, frequency, or change in urination MUSCULOSKELETAL: No joint or muscle swelling or pain. No neck or back pain SKIN: No rash NEUROLOGIC: No headache, vertigo, loss of consciousness, or change in strength/ sensation ENDOCRINE: No increased thirst. No abnormal weight change HEMATOLOGIC/LYMPHATIC: No anemia, easy bleeding, or history of blood clots ALLERGIC/IMMUNOLOGIC: No hives or skin allergy 06/11/19 20:26 Is the patient limited Khmer proficient: No *Physical Exam - Vital Signs Last Vital Signs Temp Pulse Resp BP Pulse Ox 97.5 F L 79 16 108/68 96 06/11/19 19:48 06/11/19 19:48 06/11/19 19:48 06/11/19 19:48 06/11/19 19:48 - Physical Exam GENERAL: Awake, alert, and oriented to person/place/time, in no acute distress HEAD: No signs of trauma, normoc ephalic, atraumatic EYES: PERRLA, EOMI, sclera anicteric, conjunctiva clear ENT: Hearing grossly normal, nares patent, oropharynx clear without exudates. Moist mucosa LUNGS: No distress, speaks in full sentences, clear to auscultation bilaterally HEART: Regular rate and rhythm, normal S1 and S2, no murmurs appreciated, peripheral pulses normal and equal bilaterally ABDOMEN: Soft, nontender, normoactive bowel sounds. No guarding, no rebound EXTREMITIES: Normal inspection, Normal range of motion, no edema. No clubbing or cyanosis NEUROLOGICAL: Cranial nerves II through XII grossly intact. Normal speech, no focal sensorimotor deficits SKIN: Warm, Dry 06/11/19 20:27 ED Treatment Course - LABORATORY CBC & Chemistry Diagram: 06/11/19 20:20 06/11/19 20:20 - RADIOLOGY Radiology Studies Ordered: Category Date Time Status CHEST X-RAY PORTABLE* [RAD] Stat Radiology 06/11/19 20:09 Ordered Radiograph Interpretation: CT/HEAD CT WITHOUT CONTRAST There is no evidence of acute intracranial hemorrhage, mass lesions or infarctions. The visualized paranasal sinuses and mastoid air cells are clear. There is no evidence of fracture or acute bony abnormalities. IMPRESSION: Normal CT scan of the head with no evidence of acute intracranial pathology. Medical Decision Making - Medical Decision Making The pt is a 59F w/ a history of HTN, hypothyroidism, and depression who presents for evaluation s/p syncopal episode at 1845 today. She currently denies nausea, chest pain, or dizziness ED Course CMP, CBC, Trop I ECG CXR 06/11/19 20:28 ECG w/ NSR; HR 78; QTc 490; left axis deviation; no MERNA 06/11/19 21:50 No leukocytosis No anemia Lytes unremarkable LFTs wnl Trop I neg Cr 1.6, pt received 1L IVF 06/11/19 21:51 CT head w/o acute pathology Pt signed out to admitting team for tele obs for Syncope Discharge - Discharge Information Problems reviewed: Yes Clinical Impression/Diagnosis: Syncope Qualifiers: Syncope type: unspecified Qualified Code(s): R55 - Syncope and collapse HTN (hypertension) Qualifiers: Hypertension type: unspecified Qualified Code(s): I10 - Essential (primary) hypertension Hypothyroid Qualifiers: Hypothyroidism type: unspecified Qualified Code(s): E03.9 - Hypothyroidism, unspecified Condition: Good - Admission Yes - Follow up/Referral - Patient Discharge Instructions - Post Discharge Activity
[2019-06-11 20:34] LABS: BASO % 0.5 % (0-2.0); EOS % 3.4 % (0-4.5); HEMATOCRIT 39.8 % (32.4-45.2); HEMOGLOBIN 13.2 GM/dL (10.7-15.3); LYMPH % 19.3 % (8-40); MCH 27.3 pg (25.7-33.7); MCHC 33.1 g/dl (32.0-36.0); MEAN CELL VOLUME 82.5 fl (80-96); MEAN PLT VOLUME 7.6 fl (7.5-11.1); NEUT % 69.8 % (42.8-82.8); PLATELET COUNT 342 K/MM3 (134-434); RBC 4.83 M/mm3 (3.60-5.2); RDW 14.1 % (11.6-15.6); WHITE BLOOD COUNT 8.3 K/mm3 (4.0-10.0)
[2019-06-11 21:03] LABS: ALBUMIN 3.7 g/dl (3.4-5.0); BILIRUBIN,TOTAL 0.2 mg/dL (0.2-1); BLOOD UREA NITROGEN 18.4 mg/dL (7-18); CALCIUM 9.3 mg/dL (8.5-10.1); CREATININE 1.6 mg/dL (0.55-1.3); POTASSIUM 3.9 mmol/L (3.5-5.1); TOT PROT 7.2 g/dl (6.4-8.2)
--- NOTE | 2019-06-12 00:09 | HP ---
Admitting History and Physical - Primary Care Physician PCP: Dr. Mai - Admission Chief Complaint: Syncope History of Present Illness: 59 year old female with with PMHx of HTN, hypothyroidism, and depression who presents for evaluation s/p syncopal episode at 1845 today. She states she was sitting on a bar stool when she felt sweaty, hot, and nauseated before her witnessed her pass out. He caught her and denies her hitting her head. He states that she was unconscious for approximately 3-5 minutes. She denies chest pain before/after the event. She denies recent illness, fevers, pain, chest pain, trouble breathing, current nausea, recent dysuria, hematuria, or changes in sensation. History Source: Patient Limitations to Obtaining History: No Limitations - Past Medical History Cardiovascular: Yes: HTN Psych: Yes: Depression Endocrine: Yes: Hypothyroidism - Past Surgical History Past Surgical History: Yes: Joint Replacement (right ankle pins/plate) - Smoking History Smoking history: Never smoked Have you smoked in the past 12 months: No - Alcohol/Substance Use Hx Alcohol Use: No History of Substance Use: reports: None - Social History Usual Living Arrangement: Yes: With Spouse ADL: Independent History of Recent Travel: No Home Medications - Allergies Allergies/Adverse Reactions: Allergies Allergy/AdvReac Type Severity Reaction Status Date / Time No Known Drug Allergies Allergy Verified 08/17/18 10:28 - Home Medications Home Medications: Ambulatory Orders Hydrochlorothiazide [Hctz -] 25 mg PO DAILY 08/31/15 Levothyroxine [Synthroid -] 50 mcg PO DAILY 08/31/15 Amlodipine Besylate [Norvasc -] 10 mg PO DAILY #30 tablet 02/05/18 Wellbutrin - 600 mg PO DAILY 08/17/18 Family Medical History Family Hx Cardiac Disorders: Mother (CHF) Review of Systems - Review of Systems Constitutional: reports: Diaphoresis Eyes: reports: No Symptoms HENT: reports: No Symptoms Neck: reports: No Symptoms Cardiovascular: reports: No Symptoms Respiratory: reports: No Symptoms Gastrointestinal: reports: Nausea Genitourinary: reports: No Symptoms Musculoskeletal: reports: No Symptoms Integumentary: reports: No Symptoms Neurological: reports: Syncope Endocrine: reports: Excessive Sweating Hematology/Lymphatic: reports: No Symptoms Physical Examination Vital Signs: Vital Signs Temperature 97.5 F L 06/11/19 19:48 Pulse Rate 79 06/11/19 19:48 Respiratory Rate 16 06/11/19 19:48 Blood Pressure 108/68 06/11/19 19:48 O2 Sat by Pulse Oximetry (%) 98 06/11/19 21:11 Constitutional: Yes: No Distress, Calm Eyes: Yes: Conjunctiva Clear, EOM Intact HENT: Yes: Atraumatic, Normocephalic Neck: Yes: Supple, Trachea Midline Cardiovascular: Yes: Regular Rate and Rhythm Respiratory: Yes: Regular, CTA Bilaterally Gastrointestinal: Yes: Normal Bowel Sounds, Soft Musculoskeletal: Yes: WNL Extremities: Yes: WNL Edema: No Peripheral Pulses WNL: Yes Neurological: Yes: Alert, Oriented Labs: CBC, BMP 06/11/19 20:20 06/11/19 20:20 Imaging - Results Cat Scan: Report Reviewed (CT head: w/o acute pathology) EKG: Report Reviewed ( ECG w/ NSR; HR 78; QTc 490; left axis deviation; no MERNA) Other: Report Reviewed (cbc unremarkable, trop I negative) Problem List - Problems (1) Syncope Code(s): R55 - SYNCOPE AND COLLAPSE Qualifiers: Syncope type: unspecified Qualified Code(s): R55 - Syncope and collapse (2) YEHUDA (acute kidney injury) Code(s): N17.9 - ACUTE KIDNEY FAILURE, UNSPECIFIED (3) Depression Code(s): F32.9 - MAJOR DEPRESSIVE DISORDER, SINGLE EPISODE, UNSPECIFIED (4) HTN (hypertension) Code(s): I10 - ESSENTIAL (PRIMARY) HYPERTENSION Qualifiers: Hypertension type: unspecified Qualified Code(s): I10 - Essential (primary ) hypertension (5) Hypothyroid Code(s): E03.9 - HYPOTHYROIDISM, UNSPECIFIED Qualifiers: Hypothyroidism type: unspecified Qualified Code(s): E03.9 - Hypothyroidism , unspecified Assessment/Plan 59F w/ a history of HTN, hypothyroidism, and depression who presents for evaluation s/p syncopal episode at 1845 today. She states she was sitting on a bar stool when she felt sweaty, hot, and nauseated before her witnessed her pass out. # Syncope CT head: no evidence of acute intracranial pathology. ECG w/ NSR; no s/t changes No leukocytes No anemia Lytes unremarkable LFTs wnl Trop I neg - follow up cardiology - safety/fall precaution #YEHUDA Cr 1.6, s/p 1L IVF - continue with IVF - repeat BMP in AM #HTN -Hydrochlorothiazide 25 mg PO DAILY -Amlodipine Besylate 10 mg PO DAILY # Hypothyroidism -Levothyroxine 50 mcg PO DAILY # Depression -Wellbutrin 600 mg PO DAILY Dispo:obs FEN: IVF, cardiac diet Visit type - Emergency Visit Emergency Visit: Yes ED Registration Date: 06/11/19 Care time: The patient presented to the Emergency Department on the above date and was hospitalized for further evaluation of their emergent condition. - New Patient This patient is new to me today: Yes Date on this admission: 06/12/19 - Critical Care Critical Care patient: No
[2019-06-12] MEDS ORDERED: ACETAMINOPHEN 325 MG TABLET (FP) PO PRN (00:14)
[2019-06-12] MEDS: SODIUM CHLORIDE 1,000 ML IV SCH ×2 (01:27→17:51)
[2019-06-12] MEDS ORDERED: LEVOTHYROXINE NA 25 MCG TABLET (FP) ONE (05:48)
[2019-06-12 06:41] LABS: HEMATOCRIT 38.9 % (32.4-45.2); HEMOGLOBIN 12.9 GM/dL (10.7-15.3); MCH 27.3 pg (25.7-33.7); MCHC 33.1 g/dl (32.0-36.0); MEAN CELL VOLUME 82.5 fl (80-96); MEAN PLT VOLUME 7.8 fl (7.5-11.1); PLATELET COUNT 325 K/MM3 (134-434); RBC 4.72 M/mm3 (3.60-5.2); RDW 14.2 % (11.6-15.6); WHITE BLOOD COUNT 7.8 K/mm3 (4.0-10.0)
[2019-06-12] MEDS: LEVOTHYROXINE NA 50 MCG TABLET (FP) PO SCH (06:47)
[2019-06-12 07:20] LABS: BLOOD UREA NITROGEN 15.6 mg/dL (7-18); CALCIUM 8.9 mg/dL (8.5-10.1); CREATININE 1.2 mg/dL (0.55-1.3); POTASSIUM 3.8 mmol/L (3.5-5.1)
--- NOTE | 2019-06-12 09:07 | PN ---
Progress Note, Physician - Current Medication List Current Medications: Active Medications Acetaminophen (Tylenol -) 650 mg PO Q4H PRN PRN Reason: PAIN LEVEL 1-5 Amlodipine Besylate (Norvasc -) 10 mg PO DAILY [facility] Bupropion HCl (Wellbutrin Xl -) 450 mg PO DAILY [facility] Hydrochlorothiazide (Hctz -) 25 mg PO DAILY [facility] Sodium Chloride (Normal Saline -) 1,000 mls @ 50 mls/hr IV ASDIR VIVIAN Stop: 06/13/19 00:16 Last Admin: 06/12/19 01:27 Dose: 50 mls/hr Levothyroxine Sodium (Synthroid -) 50 mcg PO DAILY@0700 [facility] Last Admin: 06/12/19 06:47 Dose: 50 mcg - Objective Vital Signs: Vital Signs Temperature 97.9 F 06/12/19 07:34 Pulse Rate 82 06/12/19 07:34 Respiratory Rate 18 06/12/19 07:34 Blood Pressure 105/67 06/12/19 07:34 O2 Sat by Pulse Oximetry (%) 97 06/12/19 07:34 Cardiovascular: Yes: Regular Rate and Rhythm Respiratory: Yes: Regular, CTA Bilaterally Gastrointestinal: Yes: Normal Bowel Sounds, Soft Neurological: Yes: Alert, Oriented. No: Ataxia, Confusion, Pre-Existing Deficit Labs: CBC, BMP 06/12/19 05:34 06/12/19 05:34 Problem List - Problems (1) Syncope Assessment/Plan: -maybe due to volume depletion--ckeck othostatic bp -dc HCTZ -CT head: no evidence of acute intracranial pathology. -ECG w/ NSR; no s/t changes -No leukocytes -No anemia -Lytes unremarkable -LFTs wnl -Trop I neg - follow up cardiology - safety/fall precaution Code(s): R55 - SYNCOPE AND COLLAPSE Qualifiers: Syncope type: unspecified Qualified Code(s): R55 - Syncope and collapse (2) YEHUDA (acute kidney injury) Assessment/Plan: - Cr 1.6, s/p 1L IVF--improved--1.2 - continue with IVF - repeat BMP in AM - observe off HCTZ Code(s): N17.9 - ACUTE KIDNEY FAILURE, UNSPECIFIED (3) Depression Assessment/Plan: -Wellbutrin 600 mg PO DAILY Code(s): F32.9 - MAJOR DEPRESSIVE DISORDER, SINGLE EPISODE, UNSPECIFIED (4) Hypothyroid Assessment/Plan: -Levothyroxine 50 mcg PO DAILY - Code(s): E03.9 - HYPOTHYROIDISM, UNSPECIFIED Qualifiers: Hypothyroidism type: unspecified Qualified Code(s): E03.9 - Hypothyroidism , unspecified (5) HTN (hypertension) Assessment/Plan: -bp well controlled -DC Hydrochlorothiazide 25 mg PO DAILY -Amlodipine Besylate 10 mg PO DAILY Code(s): I10 - ESSENTIAL (PRIMARY) HYPERTENSION Qualifiers: Hypertension type: unspecified Qualified Code(s): I10 - Essential (primary ) hypertension
[2019-06-12] MEDS ORDERED: HYDROCHLOROTHIAZIDE 25 MG TABLET (FP) PO SCH (10:00)
[2019-06-12] MEDS ORDERED: BUPROPION PO SCH (10:00)
[2019-06-12] MEDS ORDERED: amLODIPine BESYLATE 10 MG TABLET (FP) PO SCH (10:00)
--- NOTE | 2019-06-12 10:05 | EKG ---
Test Reason : Blood Pressure : / mmHG Vent. Rate : 078 BPM Atrial Rate : 078 BPM P-R Int : 170 ms QRS Dur : 094 ms QT Int : 430 ms P-R-T Axes : 045 -22 003 degrees QTc Int : 490 ms POOR DATA QUALITY, INTERPRETATION MAY BE ADVERSELY AFFECTED NORMAL SINUS RHYTHM CANNOT RULE OUT ANTERIOR INFARCT , AGE UNDETERMINED ABNORMAL ECG WHEN COMPARED WITH ECG OF 02-FEB-2018 00:20, NONSPECIFIC T WAVE ABNORMALITY NOW EVIDENT IN ANTERIOR LEADS Confirmed by EZRA FLEMING, DIVINE ([id number]) on 06/12/2019 10:04:56 AM Referred By: Confirmed By:DIVINE MUNGUIA MD
--- NOTE | 2019-06-12 13:03 | CON.CARD ---
Consult Consult Specialty:: Cardiology Referred by:: Dr. Perez Reason for Consultation:: Syncope - History of Present Illness Chief Complaint: Syncope History of Present Illness: 59 year old woman with a PMHx of HTN, hypothyroidism, and depression who presented to ED 06/11/19 with syncope. The patient was sitting on a bar stool when she felt sweaty, hot, and nauseated before her witnessed her pass out. He caught her and denies her hitting her head. She was unconscious for approximately 3-5 minutes. She denies chest pain before/after the event. She denies recent illness, fevers, pain, chest pain , trouble breathing, current nausea, recent dysuria, hematuria, or changes in sensation. BP is relatively low on home BP meds. Renal function was impaired. ECG 06/11/[address] sinus [address] without acute ST-T changes. No evidence of MA. CT scan of head 06/11/19 unremarkable. CXR 06/11/19 Normal. - History Source History Provided By: Patient, Medical Record Limitations to Obtaining History: No Limitations - Past Medical History Cardio/Vascular: Yes: HTN Psych: Yes: Depression Endocrine: Yes: Hypothyroidism - Past Surgical History Past Surgical History: Yes: Joint Replacement (right ankle pins/plate) - Alcohol/Substance Use Hx Alcohol Use: No History of Substance Use: reports: None - Smoking History Smoking history: Never smoked Have you smoked in the past 12 months: No - Social History ADL: Independent History of Recent Travel: No Home Medications - Allergies Allergies/Adverse Reactions: Allergies Allergy/AdvReac Type Severity Reaction Status Date / Time No Known Drug Allergies Allergy Verified 08/17/18 10:28 - Home Medications Home Medications: Ambulatory Orders Hydrochlorothiazide [Hctz -] 25 mg PO DAILY 08/31/15 Levothyroxine [Synthroid -] 50 mcg PO DAILY 08/31/15 Amlodipine Besylate [Norvasc -] 10 mg PO DAILY #30 tablet 02/05/18 Wellbutrin - 600 mg PO DAILY 08/17/18 Review of Systems - Review of Systems Constitutional: reports: No Symptoms Eyes: reports: No Symptoms HENT: reports: No Symptoms Neck: reports: No Symptoms Cardiovascular: reports: Other (Syncope) Respiratory: reports: No Symptoms Gastrointestinal: reports: No Symptoms Genitourinary: reports: No Symptoms Breasts: reports: No Symptoms Reported Musculoskeletal: reports: No Symptoms Integumentary: reports: No Symptoms Neurological: reports: Change in LOC, Dizziness, Syncope Endocrine: reports: No Symptoms Hematology/Lymphatic: reports: No Symptoms Psychiatric: reports: No Symptoms Vital Signs: Vital Signs Temperature 97.9 F 06/12/19 07:34 Pulse Rate 82 06/12/19 07:34 Respiratory Rate 18 06/12/19 07:34 Blood Pressure 105/67 06/12/19 07:34 O2 Sat by Pulse Oximetry (%) 97 06/12/19 07:34 General: Well developed. Obese. No acute distress. Head: Normocephalic. Atraumatic, Eyes: PERRLA, EOMI. Sclerae anicteric. Conjunctivae clear. Neck: Supple. No JVD. No bruits. Heart: Normal S1, S2: Regular rhythm and rate. No murmur. No gallop or rub. Lungs: Symmetrical air entry. Clear to auscultation. No crackles. No wheezing or rhonchi. Abdomen: Soft. Bowel sound positive. Non tender. No masses. Extremities: No edema. No clubbing or cyanosis. PD 2+, equal bilaterally. - Other Data Labs, Other Data: CBC, BMP 06/12/19 05:34 06/12/19 05:34 Troponin, BNP 06/11/19 06/12/19 20:20 10:41 Troponin I < 0.02 < 0.02 Troponin, BNP 06/11/19 06/12/19 20:20 10:41 Troponin I < 0.02 < 0.02 Assessment/Plan 59 year old woman with a PMHx of HTN, hypothyroidism, and depression who presented to ED 06/11/19 with syncope. The patient was sitting on a bar stool when she felt sweaty, hot, and nauseated before her witnessed her pass out. He caught her and denies her hitting her head. She was unconscious for approximately 3-5 minutes. She denies chest pain before/after the event. She denies recent illness, fevers, pain, chest pain , trouble breathing, current nausea, recent dysuria, hematuria, or changes in sensation. BP is relatively low on home BP meds. Renal function was impaired. ECG 06/11/[address] sinus rhythm without acute ST-T changes. No evidence of MA. CT scan of head 06/11/19 unremarkable. CXR 06/11/19 Normal. Syncope, likely due to hypotension and possible orthostatic hypotension in the settings of dehydration and diurectic therapy. Increase oral hydration. Hold/stop HCTZ. Decrease amlodipine to 5 mg daily. Outpatient cardiac follow up. Please do not hesitate to call us for reconsult at any time if any further questions or additional issue arises regarding this patient.
[2019-06-12 15:54] VITALS: BMI 37.3
[2019-06-13] MEDS: LEVOTHYROXINE NA 50 MCG TABLET (FP) PO SCH (06:17)
[2019-06-13] MEDS: SODIUM CHLORIDE 1,000 ML IV SCH (06:18)
[2019-06-13] MEDS ORDERED: amLODIPine BESYLATE 5 MG TABLET (FP) PO SCH (10:57)
[2019-06-13 11:19] VITALS: BP 141/76; PULSE 77; TEMP 98.2
--- NOTE | 2019-06-13 12:02 | DS ---
Physical Examination Vital Signs: Vital Signs Temperature 98.2 F 06/13/19 08:30 Pulse Rate 77 06/13/19 08:30 Respiratory Rate 16 06/13/19 08:30 Blood Pressure 141/76 06/13/19 08:30 O2 Sat by Pulse Oximetry (%) 96 06/12/19 20:42 Findings/Remarks: Laboratory Last Values WBC 7.8 K/mm3 (4.0-10.0) 06/12/19 05:34 RBC 4.72 M/mm3 (3.60-5.2) 06/12/19 05:34 Hgb 12.9 GM/dL (10.7-15.3) 06/12/19 05:34 Hct 38.9 % (32.4-45.2) 06/12/19 05:34 MCV 82.5 fl (80-96) 06/12/19 05:34 MCH 27.3 pg (25.7-33.7) 06/12/19 05:34 MCHC 33.1 g/dl (32.0-36.0) 06/12/19 05:34 RDW 14.2 % (11.6-15.6) 06/12/19 05:34 Plt Count 325 K/MM3 (134-434) 06/12/19 05:34 MPV 7.8 fl (7.5-11.1) 06/12/19 05:34 Absolute Neuts (auto) 5.8 K/mm3 (1.5-8.0) 06/11/19 20:20 Neutrophils % 69.8 % (42.8-82.8) D 06/11/19 20:20 Lymphocytes % 19.3 % (8-40) D 06/11/19 20:20 Monocytes % 7.0 % (3.8-10.2) 06/11/19 20:20 Eosinophils % 3.4 % (0-4.5) 06/11/19 20:20 Basophils % 0.5 % (0-2.0) 06/11/19 20:20 Nucleated RBC % 0 % (0-0) 06/11/19 20:20 Sodium 142 mmol/L (136-145) 06/12/19 05:34 Potassium 3.8 mmol/L (3.5-5.1) 01/15/20 05:34 Chloride 107 mmol/L (98-107) 06/12/19 05:34 Carbon Dioxide 28 mmol/L (21-32) 06/12/19 05:34 Anion Gap 6 MMOL/L (8-16) L 06/12/19 05:34 BUN 15.6 mg/dL (7-18) 06/12/19 05:34 Creatinine 1.2 mg/dL (0.55-1.3) 06/12/19 05:34 Est GFR (CKD-EPI)AfAm 57.69 06/12/19 05:34 Est GFR (CKD-EPI)NonAf 49.78 06/12/19 05:34 Random Glucose 92 mg/dL (74-106) 06/12/19 05:34 Calcium 8.9 mg/dL (8.5-10.1) 06/12/19 05:34 Total Bilirubin 0.2 mg/dL (0.2-1) 06/11/19 20:20 AST 15 U/L (15-37) 06/11/19 20:20 ALT 30 U/L (13-61) 06/11/19 20:20 Alkaline Phosphatase 108 U/L (45-117) 06/11/19 20:20 Creatine Kinase 102 U/L (26-192) 06/12/19 10:41 Troponin I < 0.02 ng/ml (0.00-0.05) 06/12/19 10:41 Total Protein 7.2 g/dl (6.4-8.2) 06/11/19 20:20 Albumin 3.7 g/dl (3.4-5.0) 06/11/19 20:20 TSH 3.48 uIU/ml (0.358-3.74) 06/12/19 05:34 Home Medication List Medication Instructions Recorded Confirmed Type Levothyroxine [Synthroid -] 50 mcg PO DAILY 08/31/15 06/11/19 History Wellbutrin - 600 mg PO DAILY 08/17/18 06/11/19 History Active Medications Generic Name Dose Route Start Last Admin Trade Name Freq PRN Reason Stop Dose Admin Acetaminophen 650 mg 06/12/19 00:14 Tylenol - PO Q4H PRN PAIN LEVEL 1-5 Amlodipine Besylate 5 mg 06/13/19 10:57 06/13/19 11:35 Norvasc - PO 5 mg DAILY VIVIAN Administration Bupropion HCl 450 mg 06/12/19 10:00 06/13/19 11:35 Wellbutrin Xl - PO 450 mg DAILY VIVIAN Administration Levothyroxine Sodium 50 mcg 06/12/19 07:00 06/13/19 06:17 Synthroid - PO 50 mcg DAILY@0700 VIVIAN Administration Constitutional: Yes: No Distress, Calm Eyes: Yes: Conjunctiva Clear HENT: Yes: Atraumatic Cardiovascular: Yes: Regular Rate and Rhythm Respiratory: Yes: Regular, CTA Bilaterally Gastrointestinal: Yes: Normal Bowel Sounds, Soft Musculoskeletal: Yes: WNL Extremities: Yes: WNL Edema: No Neurological: Yes: Alert, Oriented Psychiatric: Yes: Alert, Oriented Labs: CBC, BMP 06/12/19 05:34 06/12/19 05:34 Discharge Summary Problems reviewed: Yes Reason For Visit: HYPOTHYROIDISM,SYNCOPE,HYPERTENSION Current Active Problems YEHUDA (acute kidney injury) (Acute) Depression (Acute) HTN (hypertension) (Acute) Hypothyroid (Acute) Syncope (Acute) Hospital Course: 59 year old female with with PMHx of HTN, hypothyroidism, and depression who presents for evaluation s/p syncopal episode at 1845 today. She states she was sitting on a bar stool when she felt sweaty, hot, and nauseated before her witnessed her pass out. He caught her and denies her hitting her head. He states that she was unconscious for approximately 3-5 minutes. She denies chest pain before/after the event. She denies recent illness, fevers, pain, chest pain, trouble breathing, current nausea, recent dysuria, hematuria, or changes in sensation. Patient was admitted to telemetry unit and evaluated by Cardiology after syncopal episode. Troponin neg 2. Syncope possibly due hypotension, HCTZ discontinue an amlodipine dose decreased. She is cleared by cardiology for discharge but will need outpatient follow up. Condition: Stable - Instructions Diet, Activity, Other Instructions: Follow up with PMD in 1 week of discharge Follow up with Chief I Dispatcher Dr Sewell for hypothyroidism Follow up with Service [facility]er for syncopal episode for outpatient follow up and testing Amlodipine has been decreased to 5mg daily low sodium diet you will no longer be taking hydrochlorthiazide return to ER if develop severe pain, respiratory distress, chest pain Referrals: Neymar Perez MD [Primary Care Provider] - Mg Sewell MD [Staff Physician] - Disposition: HOME - Home Medications Comprehensive Discharge Medication List: Ambulatory Orders Levothyroxine [Synthroid -] 50 mcg PO DAILY 08/31/15 Wellbutrin - 600 mg PO DAILY 08/17/18 Amlodipine Besylate [Norvasc -] 5 mg PO DAILY #30 tablet 06/13/19 Bupropion HCl [Wellbutrin Xl -] 450 mg PO DAILY #30 tab.sr.24h 06/13/19
== END 2019-06-13 14:52 | disposition home or self-care (01) ==
LOC: JER 19:28 → JERBED 22:05 → J4S 06-12 15:31
PROVIDERS: ADMIT Internal Medicine; ATTEND Family Medicine
PROC: 3E0337Z Introduction of Electrolytic and Water Balance Substance into Peripheral Vein, Percutaneous Approach (ICD-10-PCS; principal; 2019-06-11)
DX: R55 Syncope and collapse (principal); N17.9 Acute kidney failure, unspecified; I10 Essential (primary) hypertension; E03.9 Hypothyroidism, unspecified; F32.9 Major depressive disorder, single episode, unspecified; E86.0 Dehydration
CPT/HCPCS: 36415; 70450-TC; 71045-TC-FY; 80048; 80053; 82550; 84443; 84484; 85025; 85027; 87081; 93005; 93010; 96360; 96361; 99284-25; G0378; J7030

== ENCOUNTER 2019-12-23 08:50 | Day surgery (SDC) | payer BC ==
[2019-12-23 09:04] VITALS: BMI 34.2
[2019-12-23] MEDS ORDERED: LIDOCAINE HCL/PF 2% SDV 5ML VIAL ONE (11:53)
[2019-12-23] MEDS ORDERED: MIDAZOLAM HCL 2 MG/2 ML SINGLE DOSE VIAL ONE (11:53)
--- NOTE | 2019-12-23 12:33 | OP ---
Operative Note - Note: Operative Date: 12/23/19 Pre-Operative Diagnosis: Left renal stone Operation: Left ESWL Findings: 5 mm mid pole Left renal stone Post-Operative Diagnosis: Same as Pre-op Surgeon: Bossman Suero Anesthesia: Regional Estimated Blood Loss (mls): 0 Operative Report Dictated: Yes
[2019-12-23 15:19] VITALS: BP 143/87; PULSE 82; TEMP 98
--- NOTE | 2019-12-23 22:51 | OP ---
DATE OF OPERATION: PREOPERATIVE DIAGNOSIS: Left renal stone. POSTOPERATIVE DIAGNOSIS: Left renal stone. PROCEDURE: Left extracorporeal shockwave lithotripsy. ATTENDING: Javier Suero M.D. ANESTHESIA: Fractional. DESCRIPTION OF PROCEDURE: Patient was brought in the operating room, placed in a supine position on the operating room table. Ultrasonography and fluoroscopy were performed. A 5-mm left mid pole stone was identified. Anesthesia, preoperative antibiotics were then administered. Shockwave lithotripsy was then commenced. 2500 impulses 17 joules of power were administered to the left mid pole stone with excellent fragmentation noted under realtime ultrasonography and fluoroscopy. There were no complications noted. The patient tolerated the procedure very well. JAVIER CHAUDHRY M.D. /[id number]
== END 2019-12-23 15:23 | disposition home or self-care (01) ==
LOC: JASU-SURG 08:50
PROVIDERS: ATTEND Urology
PROC: 0TF4XZZ Fragmentation in Left Kidney Pelvis, External Approach (ICD-10-PCS; principal; 2019-12-23 11:15)
DX: N20.0 Calculus of kidney (principal)

== ENCOUNTER 2022-01-17 04:03 | Day surgery (SDC) | payer BC ==
[2022-01-12 17:19] VITALS: BMI 34.2
[2022-01-17 06:18] VITALS: RESP 20
[2022-01-17] MEDS ORDERED: MIDAZOLAM HCL 2 MG/2 ML SINGLE DOSE VIAL ONE (07:33)
[2022-01-17] MEDS ORDERED: PROPOFOL 20 ML ONE ×2 (07:34→08:48)
[2022-01-17 09:06] VITALS: TEMP 97.1
[2022-01-17 09:18] VITALS: PULSE 74
[2022-01-17] MEDS ORDERED: ONDANSETRON 4 MG/2 ML VIAL IVPUSH PRN (11:01)
[2022-01-17] MEDS ORDERED: oxyCODONE HCL 5 MG TABLET PO PRN (11:01)
[2022-01-17] MEDS ORDERED: ACETAMINOPHEN 500 MG TABLET (FP) PO PRN (11:01)
[2022-01-17] MEDS ORDERED: LACTATED RINGERS SOLUTION 1,000 ML IV SCH (11:15)
[2022-01-17 11:19] VITALS: BP 100/70
== END 2022-01-17 11:20 | disposition home or self-care (01) ==
LOC: JASU-SURG 04:03
PROVIDERS: ATTEND Urology
PROC: 0TF3XZZ Fragmentation in Right Kidney Pelvis, External Approach (ICD-10-PCS; principal; 2022-01-17 08:15)
DX: N20.0 Calculus of kidney (principal)

== ENCOUNTER 2022-04-29 11:25 | Emergency (ER) | payer OTHER, BC ==
[2022-04-29 11:34] VITALS: BP 131/68; PULSE 91; RESP 17; TEMP 98.3; BMI 32.7
[2022-04-29] MEDS ORDERED: ACETAMINOPHEN 500 MG TABLET (FP) PO ONE (12:43)
[2022-04-29] MEDS ORDERED: IBUPROFEN 600 MG TABLET (FP) PO ONE ×2 (12:43→12:49)
[2022-04-29] MEDS ORDERED: ACETAMINOPHEN 500 MG TABLET (FP) ONE (12:48)
== END 2022-04-29 14:21 | disposition home or self-care (01) ==
LOC: JERFT 11:25
DX: M54.50 Low back pain, unspecified (principal); W01.0XXA Fall on same level from slipping, tripping and stumbling without subsequent striking against object, initial encounter
CPT/HCPCS: 72050-TC-FY; 72100-TC-FY; 99284-25

== ENCOUNTER 2023-05-24 04:00 | Day surgery (SDC) | payer BC ==
[2023-05-19 18:19] VITALS: BMI 27.0
[~2023-05-24 04:00] MED LIST changes: +ACETAMINOPHEN 325 MG TABLET (FP) PO PRN; +BSS (NA/CA/MG/K) BALANCED SALT SOLUTION OPHTH SOLN 15 ML BOTTLE OS ONE; +CHONDROITIN SU A/HYALUR SOD 1 KIT IO ONE; +EPINEPHrine/PF 1 MG/1 ML (1:1,000) AMPULE IO ONE; +LIDOCAINE HCL 1% PRESERVATIVE FREE - 30ML VIAL IO ONE; -ONDANSETRON 4 MG/2 ML VIAL IVPUSH PRN; +POVIDONE-IODINE 5% OPHTHALMIC PREP 30 ML SOLUTION OS ONE; +TETRACAINE 0.5% OPHTH SOLN 2 ML BOTTLE OS ONE; +TRYPAN BLUE 0.5 ML DISP.SYRIN IO ONE; -oxyCODONE HCL 5 MG TABLET PO PRN
[2023-05-24 07:20] VITALS: RESP 20
[2023-05-24] MEDS ORDERED: KETOROLAC TROMETHAMINE 0.5% EYE DROP 1 DROP DROPS ONE (07:20)
[2023-05-24] MEDS ORDERED: CYCLOPENTOLATE HCL 1% OPHTH SOLN 2 ML BOTTLE ONE (07:20)
[2023-05-24] MEDS ORDERED: PHENYLEPHRINE 2.5% OPTHALMIC DROP 2ML BOTTLE ONE (07:20)
[2023-05-24] MEDS ORDERED: OFLOXACIN 0.3% OPHTHALMIC SOLUTION 5 ML BOTTLE ONE (07:21)
[2023-05-24] MEDS ORDERED: TROPICAMIDE 1% OPHTH SOLN 15 ML BOTTLE ONE (07:21)
[2023-05-24] MEDS ORDERED: LIDOCAINE HCL/PF 2% SDV 5ML VIAL ONE (07:24)
[2023-05-24] MEDS ORDERED: LIDOCAINE HCL/PF 1% SDV 5ML VIAL ONE (07:24)
[2023-05-24] MEDS ORDERED: POVIDONE-IODINE 5% OPHTHALMIC PREP 30 ML SOLUTION ONE (07:25)
[2023-05-24] MEDS ORDERED: BUPIVACAINE HCL/PF 0.75% 10 ML VIAL ONE (07:25)
[2023-05-24] MEDS: PHENYLEPHRINE 2.5% OPHTH SOLN 15 ML BOTTLE OP SCH ×3 (07:30→07:44)
[2023-05-24] MEDS: TROPICAMIDE 1% OPHTH SOLN 15 ML BOTTLE OP SCH ×3 (07:30→07:44)
[2023-05-24] MEDS: OFLOXACIN 0.3% OPHTHALMIC SOLUTION 5 ML BOTTLE OP SCH ×3 (07:30→07:44)
[2023-05-24] MEDS: KETOROLAC TROMETHAMINE 0.5% EYE DROP 1 DROP DROPS OP SCH ×3 (07:30→07:44)
[2023-05-24] MEDS: CYCLOPENTOLATE HCL 1% OPHTH SOLN 2 ML BOTTLE OP SCH ×3 (07:30→07:44)
[2023-05-24] MEDS ORDERED: MIDAZOLAM HCL 2 MG/2 ML SINGLE DOSE VIAL ONE (09:01)
[2023-05-24] MEDS ORDERED: ONDANSETRON 4 MG/2 ML VIAL ONE (09:16)
[2023-05-24] MEDS ORDERED: TETRACAINE 0.5% OPHTH SOLN 2 ML BOTTLE OS ONE (09:17)
[2023-05-24] MEDS ORDERED: POVIDONE-IODINE 5% OPHTHALMIC PREP 30 ML SOLUTION OS ONE (09:18)
[2023-05-24] MEDS ORDERED: BSS (NA/CA/MG/K) BALANCED SALT SOLUTION OPHTH SOLN 15 ML BOTTLE OS ONE (09:24)
[2023-05-24] MEDS ORDERED: CHONDROITIN SU A/HYALUR SOD 1 KIT IO ONE (09:25)
[2023-05-24] MEDS ORDERED: LIDOCAINE HCL 1% PRESERVATIVE FREE - 30ML VIAL IO ONE (09:25)
[2023-05-24] MEDS ORDERED: EPINEPHrine/PF 1 MG/1 ML (1:1,000) AMPULE IO ONE (09:32)
[2023-05-24 10:39] VITALS: BP 111/72; PULSE 76; TEMP 97.1
== END 2023-05-24 10:41 | disposition home or self-care (01) ==
LOC: JASU-SURG 04:00
PROVIDERS: ATTEND Ophthalmology
PROC: 08RK3JZ Replacement of Left Lens with Synthetic Substitute, Percutaneous Approach (ICD-10-PCS; principal; 2023-05-24 09:00)
DX: H26.9 Unspecified cataract (principal)
CPT/HCPCS: V2632

== ENCOUNTER 2023-06-07 04:30 | Day surgery (SDC) | payer BC ==
[2023-06-01 16:40] VITALS: BMI 27.6
[~2023-06-07 04:30] MED LIST changes: -BSS (NA/CA/MG/K) BALANCED SALT SOLUTION OPHTH SOLN 15 ML BOTTLE OS ONE; -CHONDROITIN SU A/HYALUR SOD 1 KIT IO ONE; -EPINEPHrine/PF 1 MG/1 ML (1:1,000) AMPULE IO ONE; -LIDOCAINE HCL 1% PRESERVATIVE FREE - 30ML VIAL IO ONE; -POVIDONE-IODINE 5% OPHTHALMIC PREP 30 ML SOLUTION OS ONE; +TETRACAINE 0.5% OPHTH SOLN 2 ML BOTTLE OD ONE; -TETRACAINE 0.5% OPHTH SOLN 2 ML BOTTLE OS ONE; -TRYPAN BLUE 0.5 ML DISP.SYRIN IO ONE
[2023-06-07] MEDS ORDERED: LACTATED RINGERS SOLUTION 1,000 ML IV SCH (07:30)
[2023-06-07] MEDS ORDERED: ONDANSETRON 4 MG/2 ML VIAL IVPUSH PRN (07:30)
[2023-06-07] MEDS ORDERED: PHENYLEPHRINE 2.5% OPTHALMIC DROP 2ML BOTTLE ONE (07:34)
[2023-06-07] MEDS ORDERED: KETOROLAC TROMETHAMINE 0.5% EYE DROP 1 DROP DROPS ONE (07:34)
[2023-06-07] MEDS ORDERED: OFLOXACIN 0.3% OPHTHALMIC SOLUTION 5 ML BOTTLE ONE (07:34)
[2023-06-07] MEDS ORDERED: TROPICAMIDE 1% OPHTH SOLN 15 ML BOTTLE ONE (07:34)
[2023-06-07] MEDS ORDERED: CYCLOPENTOLATE HCL 1% OPHTH SOLN 2 ML BOTTLE ONE (07:34)
[2023-06-07] MEDS ORDERED: LIDOCAINE HCL/PF 1% SDV 5ML VIAL ONE (07:42)
[2023-06-07] MEDS: TROPICAMIDE 1% OPHTH SOLN 15 ML BOTTLE OP SCH ×3 (07:50→08:01)
[2023-06-07] MEDS: KETOROLAC TROMETHAMINE 0.5% EYE DROP 1 DROP DROPS OP SCH ×3 (07:50→08:02)
[2023-06-07] MEDS: PHENYLEPHRINE 2.5% OPHTH SOLN 15 ML BOTTLE OP SCH ×3 (07:50→08:02)
[2023-06-07] MEDS: CYCLOPENTOLATE HCL 1% OPHTH SOLN 2 ML BOTTLE OP SCH ×3 (07:50→08:02)
[2023-06-07] MEDS: OFLOXACIN 0.3% OPHTHALMIC SOLUTION 5 ML BOTTLE OP SCH ×3 (07:50→08:02)
[2023-06-07] MEDS ORDERED: ONDANSETRON 4 MG/2 ML VIAL ONE (08:58)
[2023-06-07] MEDS ORDERED: MIDAZOLAM HCL 2 MG/2 ML SINGLE DOSE VIAL ONE (08:58)
[2023-06-07] MEDS ORDERED: TETRACAINE 0.5% OPHTH SOLN 2 ML BOTTLE OD ONE (09:21)
[2023-06-07] MEDS ORDERED: POVIDONE-IODINE 5% OPHTHALMIC PREP 30 ML SOLUTION OD ONE (09:25)
[2023-06-07] MEDS ORDERED: LIDOCAINE HCL 1% PRESERVATIVE FREE - 30ML VIAL IJ ONE (09:31)
[2023-06-07] MEDS ORDERED: EPINEPHrine/PF 1 MG/1 ML (1:1,000) AMPULE SQ ONE ×2 (09:32→09:37)
[2023-06-07] MEDS ORDERED: CHONDROITIN SU A/HYALUR SOD 1 KIT IO ONE (09:32)
[2023-06-07] MEDS ORDERED: BSS (NA/CA/MG/K) BALANCED SALT SOLUTION OPHTH SOLN 15 ML BOTTLE OD ONE (09:33)
[2023-06-07 10:09] VITALS: RESP 18
[2023-06-07] MEDS ORDERED: ACETAMINOPHEN 325 MG TABLET (FP) ONE (11:02)
[2023-06-07 11:29] VITALS: BP 118/63; PULSE 77; TEMP 97.8
== END 2023-06-07 11:30 | disposition home or self-care (01) ==
LOC: JASU-SURG 04:30
PROVIDERS: ATTEND Ophthalmology
PROC: 08RJ3JZ Replacement of Right Lens with Synthetic Substitute, Percutaneous Approach (ICD-10-PCS; principal; 2023-06-07 09:00)
DX: H26.9 Unspecified cataract (principal)
CPT/HCPCS: V2632

== ENCOUNTER 2023-08-07 00:16 | Emergency (ER) | payer BC ==
[2023-08-07] MEDS: SODIUM CHLORIDE 1,000 ML IV ONE ×2 (00:46→01:10)
[2023-08-07 01:19] VITALS: BP 111/78; PULSE 90; RESP 18; TEMP 97.6; BMI 26.2
[2023-08-07 01:47] LABS: HEMATOCRIT 41.1 % (32.4-45.2); HEMOGLOBIN 13.6 GM/dL (10.7-15.3); MCH 27.9 pg (25.7-33.7); MCHC 33.2 g/dl (32.0-36.0); MEAN CELL VOLUME 83.9 fl (80-96); PLATELET COUNT 364 10^3/uL (134-434); RDW 14.1 % (11.6-15.6); WHITE BLOOD COUNT 11.1 K/mm3 (4.0-10.0)
[2023-08-07 03:08] LABS: POTASSIUM 3.5 mmol/L (3.5-5.1)
[2023-08-07 03:10] LABS: ALBUMIN 3.4 g/dl (3.4-5.0); CALCIUM 9.4 mg/dL (8.5-10.1); MAGNESIUM 1.8 mg/dL (1.8-2.4)
[2023-08-07 03:11] LABS: BLOOD UREA NITROGEN 24.9 mg/dL (7-18)
[2023-08-07 03:15] LABS: BILIRUBIN,TOTAL 0.5 mg/dL (0.2-1); TOT PROT 7.2 g/dl (6.4-8.2)
[2023-08-07 03:17] LABS: CREATININE 1.3 mg/dL (0.55-1.3)
[2023-08-07] MEDS ORDERED: LOPERAMIDE HCL 2 MG CAPSULE ONE (03:25)
[2023-08-07] MEDS: LOPERAMIDE HCL 2 MG CAPSULE PO ONE (03:25)
== END 2023-08-07 03:33 | disposition home or self-care (01) ==
LOC: FER 00:16
PROC: 3E0337Z Introduction of Electrolytic and Water Balance Substance into Peripheral Vein, Percutaneous Approach (ICD-10-PCS; principal; 2023-08-07)
DX: R19.7 Diarrhea, unspecified (principal)
CPT/HCPCS: 36415; 80053; 83735; 85027; 99284-25

== ENCOUNTER 2023-08-09 04:09 | Inpatient (IN) | payer BC ==
[2023-08-09 04:19] VITALS: RESP 18
[2023-08-09] MEDS: SODIUM CHLORIDE 0.9% 500 ML INFUS.BAG IV ONE ×2 (05:03→05:59)
[2023-08-09 05:34] LABS: INR 1.1 (0.83-1.09); PROTHROMBIN TIME (PATIENT) 12.7 SEC (9.7-13.0)
[2023-08-09 05:37] LABS: ACTIVATED PTT 28.9 SECONDS (25.2-36.5)
[2023-08-09 05:40] LABS: VENOUS BASE EXCESS -7.2 mmol/L (-2-2); VENOUS PCO2 44.7 mmHg (38-52); VENOUS PH 7.264 (7.310-7.410)
[2023-08-09 05:56] LABS: POTASSIUM 3.8 mmol/L (3.5-5.1)
[2023-08-09 05:58] LABS: ALBUMIN 3.5 g/dl (3.4-5.0); BLOOD UREA NITROGEN 17.5 mg/dL (7-18); CALCIUM 9.6 mg/dL (8.5-10.1)
[2023-08-09 06:02] LABS: CREATININE 1.2 mg/dL (0.55-1.3)
[2023-08-09 06:03] LABS: BILIRUBIN,TOTAL 0.4 mg/dL (0.2-1); TOT PROT 7.6 g/dl (6.4-8.2)
[2023-08-09 06:10] LABS: HEMATOCRIT 44.7 % (32.4-45.2); HEMOGLOBIN 14.5 GM/dL (10.7-15.3); MCH 27.2 pg (25.7-33.7); MCHC 32.4 g/dl (32.0-36.0); PLATELET COUNT 364 10^3/uL (134-434); RBC 5.32 M/mm3 (3.60-5.2); RDW 14.1 % (11.6-15.6); WHITE BLOOD COUNT 5.9 K/mm3 (4.0-10.0)
[2023-08-09] MEDS: LACTATED RINGERS SOLUTION 1,000 ML IV SCH (12:10)
[2023-08-09 19:54] LABS: EPI CELLS 11 /uL (0-25.1); HYALINE CASTS 2 /uL (0-3.1); URINE APPEARANCE CLEAR; URINE BACTERIA 4 /uL (0-1359); URINE BILIRUBIN NEGATIVE (NEGATIVE); URINE COLOR YELLOW; URINE GLUCOSE (UA) NEGATIVE (NEGATIVE); URINE KETONE 1+ (NEGATIVE); URINE LEUK ESTERASE NEGATIVE (NEGATIVE); URINE NITRITE NEGATIVE (NEGATIVE); URINE PROTEIN 1+ (NEGATIVE); URINE RBC 9 /uL (0-23.9); URINE UROBILINOGEN 0.2 mg/dL (0.2-1.0); URINE WBC 19 /uL (0-25.8)
[2023-08-09 23:14] VITALS: BMI 25.8
[2023-08-10 07:32] LABS: HEMATOCRIT 34.4 % (32.4-45.2); HEMOGLOBIN 11.4 GM/dL (10.7-15.3); MCH 27.6 pg (25.7-33.7); MCHC 33.3 g/dl (32.0-36.0); MEAN CELL VOLUME 82.8 fl (80-96); MEAN PLT VOLUME 7.7 fl (7.5-11.1); PLATELET COUNT 295 10^3/uL (134-434); RBC 4.15 M/mm3 (3.60-5.2); RDW 13.8 % (11.6-15.6)
[2023-08-10 07:51] LABS: CHLORIDE 114 mmol/L (98-107); POTASSIUM 3.2 mmol/L (3.5-5.1); SODIUM 144 mmol/L (136-145)
[2023-08-10 07:54] LABS: ANION GAP 7 mmol/L (4-13); BLOOD UREA NITROGEN 11.6 mg/dL (7-18); CO2 23 mmol/L (21-32); GLUCOSE,RANDOM 78 mg/dL (74-106); MAGNESIUM 1.2 mg/dL (1.8-2.4)
[2023-08-10 07:56] LABS: CREATININE 0.9 mg/dL (0.55-1.3); SGOT/AST < 3 U/L (15-37); SGPT/ALT 9 U/L (13-61)
[2023-08-10 07:57] LABS: BILIRUBIN,TOTAL 0.3 mg/dL (0.2-1)
[2023-08-10 07:59] LABS: ALK PHOS 65 U/L (45-117)
[2023-08-10 08:24] LABS: ALBUMIN 2.6 g/dl (3.4-5.0); CALCIUM 8.1 mg/dL (8.5-10.1); TOT PROT 5.4 g/dl (6.4-8.2)
[2023-08-10 08:29] LABS: ANISOCYTOSIS 0; MACROCYTOSIS 0
[2023-08-10] MEDS: ATORVASTATIN CA 10 MG TABLET (FP) PO SCH (10:59)
[2023-08-10] MEDS: PANTOPRAZOLE 40 MG TABLET PO SCH (10:59)
[2023-08-10] MEDS: DULoxetine HCL 20 MG CAPSULE.DR PO SCH (10:59)
[2023-08-10] MEDS: VANCOMYCIN ORAL SOLUTION 125 MG/2.5 ML PO SCH (11:40)
[2023-08-10] MEDS: VANCOMYCIN 250 MG/5 ML ORAL SOLUTION PO SCH (18:01)
[2023-08-11] MEDS: LEVOTHYROXINE NA 75 MCG TABLET (FP) PO SCH (06:41)
[2023-08-11 08:01] LABS: HEMATOCRIT 32.2 % (32.4-45.2); HEMOGLOBIN 10.6 GM/dL (10.7-15.3); MCH 27.3 pg (25.7-33.7); MEAN CELL VOLUME 82.6 fl (80-96); PLATELET COUNT 261 10^3/uL (134-434); RDW 13.7 % (11.6-15.6); WHITE BLOOD COUNT 5.6 K/mm3 (4.0-10.0)
[2023-08-11 08:27] LABS: POTASSIUM 3.2 mmol/L (3.5-5.1)
[2023-08-11 08:32] LABS: BLOOD UREA NITROGEN 5.1 mg/dL (7-18); CALCIUM 8.2 mg/dL (8.5-10.1)
[2023-08-11 08:33] LABS: ALBUMIN 2.3 g/dl (3.4-5.0)
[2023-08-11 08:36] LABS: CREATININE 0.7 mg/dL (0.55-1.3)
[2023-08-11 08:38] LABS: BILIRUBIN,TOTAL 0.3 mg/dL (0.2-1); TOT PROT 5.4 g/dl (6.4-8.2)
[2023-08-11] MEDS: ACETAMINOPHEN 325 MG TABLET (FP) PO PRN (11:54)
[2023-08-11] MEDS: BANATROL PLUS POWDER PACKET PO SCH (13:41)
[2023-08-11 14:23] VITALS: PULSE 76; TEMP 98.1
[2023-08-11 14:29] VITALS: BP 116/75
[2023-08-11] MEDS ORDERED: POTASSIUM CHLORIDE TABS 10 MEQ TABLET.ER (FP) PO SCH (22:00)
== END 2023-08-11 18:45 | disposition home or self-care (01) | DRG 391 ==
LOC: JER 04:09 → JERBED 08:29 → J7W 20:35
PROVIDERS: ADMIT Internal Medicine; ATTEND Internal Medicine
DX: A08.4 Viral intestinal infection, unspecified (principal); U07.1 COVID-19; N17.9 Acute kidney failure, unspecified; I10 Essential (primary) hypertension; E03.9 Hypothyroidism, unspecified; F32.A Depression, unspecified; E86.9 Volume depletion, unspecified; E86.0 Dehydration; K83.8 Other specified diseases of biliary tract; R59.9 Enlarged lymph nodes, unspecified
CPT/HCPCS: 0241U-QW; 36415; 71045-TC-FY; 74177-TC; 80053; 81003; 82550; 82803; 83605; 83735; 83993; 84100; 84443; 84484; 85025; 85027; 85610; 85730; 86850; 86900; 86901; 87040; 87045; 87046; 87086; 87209; 87324; 87425; 87449; 87493; 87798; 93005; 93010; 99285-25

== ENCOUNTER 2024-02-14 12:44 | Emergency (ER) | payer BC ==
[2024-02-14 12:51] VITALS: BMI 27.4
[2024-02-14] MEDS ORDERED: ACETAMINOPHEN INJECTION 100 ML ONE (13:41)
[2024-02-14] MEDS ORDERED: ONDANSETRON 4 MG/2 ML VIAL ONE (13:41)
[2024-02-14] MEDS ORDERED: FAMOTIDINE 20 MG/50 ML IVPB 20 MG/50 ML MG IVPB ONE (13:41)
[2024-02-14] MEDS: ONDANSETRON 4 MG/2 ML VIAL IVPUSH ONE (14:15)
[2024-02-14] MEDS: SODIUM CHLORIDE 0.9% 500 ML INFUS.BAG IV ONE ×2 (14:15→18:24)
[2024-02-14] MEDS: FAMOTIDINE 20 MG/50 ML IVPB 20 MG/50 ML MG IVPB ONE (14:15)
[2024-02-14] MEDS: ACETAMINOPHEN 1000 MG/100 ML BAG IVPB ONE (14:15)
[2024-02-14 14:29] LABS: BASO % 0.4 % (0-2.0); EOS % 5.2 % (0-4.5); HEMATOCRIT 41.8 % (32.4-45.2); HEMOGLOBIN 13.7 GM/dL (10.7-15.3); LYMPH % 21.4 % (8-40); MCHC 32.8 g/dl (32.0-36.0); MEAN CELL VOLUME 85.3 fl (80-96); MEAN PLT VOLUME 7.3 fl (7.5-11.1); MONO % 9.9 % (3.8-10.2); NEUT % 63.1 % (42.8-82.8); PLATELET COUNT 274 10^3/uL (134-434); RBC 4.91 M/mm3 (3.60-5.2); RDW 14.2 % (11.6-15.6); WHITE BLOOD COUNT 6.2 K/mm3 (4.0-10.0)
[2024-02-14 14:44] LABS: POTASSIUM 3.9 mmol/L (3.5-5.1)
[2024-02-14 14:46] LABS: CALCIUM 9.2 mg/dL (8.5-10.1)
[2024-02-14 14:47] LABS: ALBUMIN 3.6 g/dl (3.4-5.0); BLOOD UREA NITROGEN 21.1 mg/dL (7-18); MAGNESIUM 2.2 mg/dL (1.8-2.4)
[2024-02-14 14:50] LABS: CREATININE 1.1 mg/dL (0.55-1.3)
[2024-02-14 14:51] LABS: BILIRUBIN,TOTAL 0.4 mg/dL (0.2-1); TOT PROT 7.2 g/dl (6.4-8.2)
[2024-02-14 15:41] LABS: HIV INTERPRETATION NEGATIVE (NEGATIVE)
[2024-02-14 18:07] LABS: POTASSIUM 3.5 mmol/L (3.5-5.1)
[2024-02-14 18:08] LABS: BLOOD UREA NITROGEN 18.5 mg/dL (7-18); CALCIUM 8.5 mg/dL (8.5-10.1)
[2024-02-14 18:58] VITALS: BP 123/63; PULSE 68; RESP 12; TEMP 98.4
== END 2024-02-14 19:15 | disposition home or self-care (01) ==
LOC: JER 12:44
PROC: 3E033GC Introduction of Other Therapeutic Substance into Peripheral Vein, Percutaneous Approach (ICD-10-PCS; principal; 2024-02-14)
PROC: 3E033NZ Introduction of Analgesics, Hypnotics, Sedatives into Peripheral Vein, Percutaneous Approach (ICD-10-PCS; 2024-02-14)
PROC: 3E033GC Introduction of Other Therapeutic Substance into Peripheral Vein, Percutaneous Approach (ICD-10-PCS; 2024-02-14)
DX: R19.7 Diarrhea, unspecified (principal); R10.30 Lower abdominal pain, unspecified
CPT/HCPCS: 36415; 80048; 80053; 83690; 83735; 85025; 86803; 87389; 99284-25; J0131

== ENCOUNTER 2024-02-18 23:24 | Observation (INO) | payer BC ==
[2024-02-19 00:40] LABS: BASO % 0.4 % (0-2.0); EOS % 6.6 % (0-4.5); HEMATOCRIT 36.2 % (32.4-45.2); HEMOGLOBIN 12.2 GM/dL (10.7-15.3); LYMPH % 31.2 % (8-40); MCH 28.5 pg (25.7-33.7); MCHC 33.8 g/dl (32.0-36.0); MEAN CELL VOLUME 84.3 fl (80-96); MEAN PLT VOLUME 7.2 fl (7.5-11.1); MONO % 9.7 % (3.8-10.2); NEUT % 52.1 % (42.8-82.8); PLATELET COUNT 250 10^3/uL (134-434); RDW 14.1 % (11.6-15.6); WHITE BLOOD COUNT 6.6 K/mm3 (4.0-10.0)
[2024-02-19] MEDS: LACTATED RINGERS SOLUTION 1000 ML INFUS.BAG IV ONE (00:40)
[2024-02-19 01:09] LABS: ALBUMIN 3.1 g/dl (3.4-5.0); CALCIUM 8.8 mg/dL (8.5-10.1); POTASSIUM 3.3 mmol/L (3.5-5.1)
[2024-02-19 01:10] LABS: BLOOD UREA NITROGEN 19.3 mg/dL (7-18); MAGNESIUM 1.7 mg/dL (1.8-2.4)
[2024-02-19 01:13] LABS: CREATININE 1.1 mg/dL (0.55-1.3); PHOSPHOROUS 4.3 mg/dL (2.5-4.9)
[2024-02-19 01:14] LABS: BILIRUBIN,TOTAL 0.2 mg/dL (0.2-1)
[2024-02-19] MEDS ORDERED: POTASSIUM CHLORIDE ORAL LIQUID 20 MEQ/15 ML ONE (01:34)
[2024-02-19] MEDS ORDERED: MAGNESIUM 1GM/D5W - 1 GM/100 ML IVPB IVPB ONE (01:34)
[2024-02-19] MEDS: MAGNESIUM 1GM/D5W - 1 GM/100 ML IVPB IVPB ONE (01:50)
[2024-02-19] MEDS: POTASSIUM CHLORIDE ORAL LIQUID 20 MEQ/15 ML PO ONE (01:50)
[2024-02-19 07:53] LABS: EPI CELLS 4 /uL (0-25.1); HYALINE CASTS 0 /uL (0-3.1); URINE APPEARANCE CLEAR; URINE BACTERIA 12 /uL (0-1359); URINE BILIRUBIN NEGATIVE (NEGATIVE); URINE COLOR YELLOW; URINE GLUCOSE (UA) NEGATIVE (NEGATIVE); URINE KETONE NEGATIVE (NEGATIVE); URINE LEUK ESTERASE TRACE (NEGATIVE); URINE NITRITE NEGATIVE (NEGATIVE); URINE PROTEIN NEGATIVE (NEGATIVE); URINE RBC 11 /uL (0-23.9); URINE UROBILINOGEN 0.2 mg/dL (0.2-1.0); URINE WBC 10 /uL (0-25.8)
[2024-02-19 18:31] VITALS: BMI 26.4
[2024-02-19] MEDS: ATORVASTATIN CA 10 MG TABLET (FP) PO SCH (22:52)
[2024-02-20] MEDS: LEVOTHYROXINE NA 75 MCG TABLET (FP) PO SCH (06:23)
[2024-02-20] MEDS: amLODIPine BESYLATE 10 MG TABLET (FP) PO SCH (10:48)
[2024-02-20] MEDS: HYDROCHLOROTHIAZIDE 25 MG TABLET (FP) PO SCH (10:48)
[2024-02-20] MEDS: DULoxetine HCL 20 MG CAPSULE.DR PO SCH (11:00)
[2024-02-20] MEDS: METOCLOPRAMIDE HCL 10 MG TABLET (FP) PO SCH (11:37)
[2024-02-20 14:59] VITALS: RESP 18
[2024-02-21] MEDS: PANTOPRAZOLE 40 MG TABLET PO SCH (10:14)
[2024-02-21 10:20] VITALS: TEMP 98.4
[2024-02-21 11:05] LABS: BASO % 0.6 % (0-2.0); EOS % 13.6 % (0-4.5); HEMATOCRIT 38.6 % (32.4-45.2); HEMOGLOBIN 13.1 GM/dL (10.7-15.3); LYMPH % 27.8 % (8-40); MCH 28.5 pg (25.7-33.7); MCHC 34.1 g/dl (32.0-36.0); MEAN CELL VOLUME 83.6 fl (80-96); MEAN PLT VOLUME 7.1 fl (7.5-11.1); MONO % 7.4 % (3.8-10.2); NEUT % 50.6 % (42.8-82.8); PLATELET COUNT 287 10^3/uL (134-434); RBC 4.62 M/mm3 (3.60-5.2); RDW 13.7 % (11.6-15.6); WHITE BLOOD COUNT 5.4 K/mm3 (4.0-10.0)
[2024-02-21 11:43] LABS: POTASSIUM 3.6 mmol/L (3.5-5.1)
[2024-02-21 11:45] LABS: ALBUMIN 3.1 g/dl (3.4-5.0); CALCIUM 9.3 mg/dL (8.5-10.1)
[2024-02-21 11:46] LABS: BLOOD UREA NITROGEN 9.7 mg/dL (7-18)
[2024-02-21 11:48] LABS: CREATININE 0.9 mg/dL (0.55-1.3)
[2024-02-21 11:50] LABS: BILIRUBIN,TOTAL 0.4 mg/dL (0.2-1); TOT PROT 6.5 g/dl (6.4-8.2)
[2024-02-21 14:28] VITALS: BP 112/79; PULSE 84
== END 2024-02-21 16:25 | disposition home or self-care (01) ==
LOC: JER 23:24 → JERBED 02-19 05:07 → J6W 02-19 17:50
PROVIDERS: ADMIT Internal Medicine; ATTEND Internal Medicine
PROC: 3E033GC Introduction of Other Therapeutic Substance into Peripheral Vein, Percutaneous Approach (ICD-10-PCS; principal; 2024-02-19)
PROC: 3E0337Z Introduction of Electrolytic and Water Balance Substance into Peripheral Vein, Percutaneous Approach (ICD-10-PCS; 2024-02-19)
DX: R19.7 Diarrhea, unspecified (principal); E03.9 Hypothyroidism, unspecified; I10 Essential (primary) hypertension; F32.A Depression, unspecified; Z86.19 Personal history of other infectious and parasitic diseases; E78.5 Hyperlipidemia, unspecified; K21.9 Gastro-esophageal reflux disease without esophagitis; K63.5 Polyp of colon; K86.9 Disease of pancreas, unspecified; Z90.49 Acquired absence of other specified parts of digestive tract; Z90.79 Acquired absence of other genital organ(s)
CPT/HCPCS: 36415; 74177-TC; 80053; 81003; 83690; 83735; 83993; 84100; 85025; 87045; 87046; 87205; 87209; 87324; 87328; 87329; 87449; 87798; 99285-25; G0378; Q9967